=== PATIENT | female | born 1950 | race Caucasian/White ===

== ENCOUNTER 2016-10-27 16:06 | Inpatient (IN) | payer MEDICARE, OTHER ==
[~2016-10-27] VITALS: Ht 149.9 cm; Wt 76.7 kg
[~2016-10-27 16:06] MED LIST: ALBU8.5H6 INH; ASPI81TA9 PO; ATOR20TA58 PO; CARB15DR3 EACHEYE; CARV6.252 PO; CYAN500T17 PO; CYCL10TA2 PO; DOXY100C2 PO; FAMO20TA5 PO; FURO-68 PO; GUAI600T28 PO; HYDR25TA PO; LOSA25TA PO; MULT-18 PO; NITR0.4T6 SL; SIMV40TA3 PO; SPIR25TA PO; SPIR25TA3 PO; TRAM50TA PO; WARF5TAB7 PO
[2016-10-27] MEDS ORDERED: IV NORMAL SALINE 1000ML BAG 1,000 ML IV ONE ×2 (17:00→20:00)
[2016-10-27] MEDS ORDERED: LORAZEPAM 2 MG/ML VIAL IV ONE (17:15)
[2016-10-27] MEDS ORDERED: DIPHENHYDRAMINE 50 MG/ML VIAL IVP ONE (17:15)
[2016-10-27 17:45] LABS: BILIRUBIN,URINE NEGATIVE (NEG); GLUCOSE,URINE NEGATIVE (NEG); NITRITE,URINE NEGATIVE (NEG); PROTEIN,URINE NEGATIVE (NEG-TRACE); UROBILINOGEN,URINE 0.2 mg/dL (0.2 mg/dL)
[2016-10-27 17:45] LABS: BASO # 0.1 x10^3/uL (0.0-0.2); BASO % 1 % (0-3); EOS % 0 % (0-3); HEMOGLOBIN 13.2 g/dL (12.0-15.5); LYMPH # 1.6 x10^3/uL (1.0-4.8); LYMPH % 12 % (24-48); MEAN CORPUSCULAR HEMOGLOBIN 27 pg (25-35); MEAN CORPUSCULAR HGB CONC 33 g/dL (31-37); MEAN CORPUSCULAR VOLUME 83 fL (79-100); MONO % 7 % (0-9); NEUT % 79 % (31-73); PLATELET COUNT 338 x10^3/uL (140-400); RED BLOOD COUNT 4.83 x10^6/uL (3.50-5.40); RED CELL DISTRIBUTION WIDTH 14.1 % (11.5-14.5); WHITE BLOOD COUNT 12.7 x10^3/uL (4.0-11.0)
[2016-10-27 17:55] LABS: BARBITURATES NEG (NEG); BENZODIAZEPINES NEG (NEG); CANNABINOIDS NEG (NEG); COCAINE NEG (NEG); METHADONE NEG (NEG); OPIATES NEG (NEG); PHENCYCLIDINE NEG (NEG); RBC,URINE 0 /HPF (0-2); WBC,URINE OCC /HPF (0-4)
[2016-10-27 17:56] LABS: BACTERIA,URINE 0 /HPF (0-FEW); SQUAMOUS EPITHELIAL CELL,UR MOD /LPF
[2016-10-27 17:57] LABS: ETHANOL, URINE NEG (NEG)
[2016-10-27 17:59] LABS: CALCIUM 9.3 mg/dL (8.5-10.1); CREATININE 2.6 mg/dL (0.6-1.0); GFR 18.5; POTASSIUM 5.1 mmol/L (3.5-5.1)
[2016-10-27 18:11] LABS: ALBUMIN 4.6 g/dL (3.4-5.0); TOTAL BILIRUBIN 0.7 mg/dL (0.2-1.0)
[2016-10-27] MEDS ORDERED: FENTANYL PF 100 MCG/2 ML VIAL. IV PRN (19:30)
[2016-10-27] MEDS ORDERED: IV NORMAL SALINE 1000ML BAG 1,000 ML IV SCH (19:30)
[2016-10-27] MEDS ORDERED: ACETAMINOPHEN 325 MG TABLET. PO PRN (19:30)
[2016-10-27] MEDS ORDERED: ONDANSETRON PF 4 MG/2 ML VIAL. IV PRN ×2 (19:30→20:00)
--- NOTE | 2016-10-27 19:31 | PDOC1 ---
History and Physical Past Medical History Past Medical History PAST MEDICAL HISTORY: 1. Systolic cardiomyopathy. 2. Hypertension. 3. Hyperlipidemia. 4. Valvular insufficiency. 5. Pulmonary embolism. 6. Pneumonia. 7. Anemia. 8. Peripheral neuropathy. 9. Osteoarthritis. 10. Diabetes. PAST SURGICAL HISTORY: 1. Cholecystectomy, placement of a mitral valve ring in 2008. 2. Knee arthroscopy. 3. Left chest AICD placement complicated by staph infection. 4. Possible stent placement of the right subclavian due to venous occlusion. Cardiovascular: CHF, HTN, Hyperlipidemia, Valve insufficiency Pulmonary: Pulmonary embolus, Pneumonia CENTRAL NERVOUS SYSTEM: Periperal neuropathy GI: No pertinent hx Heme/Onc: Anemia NOS, Other Hepatobiliary: No pertinent hx Psych: No pertinent hx Rheumatologic: No pertinent hx Infectious disease: No pertinent hx Renal/: No pertinent hx Endocrine: Diabetes Past Surgical History Past Surgical History: Cholecystectomy, Other Family History Family History: Coronary Artery Disease Social History Smoke: No ALCOHOL: none Drugs: None Current Medications Current Medications Current Medications Medications (Trade) Dose Ordered Sig/[facility] Start Time Stop Time Status Last Admin Dose Admin Acetaminophen (Tylenol) 650 mg PRN Q4HRS PRN 10/27/16 19:30 10/28/16 19:29 Diphenhydramine HCl (Benadryl) 25 mg 1X ONCE 10/27/16 17:15 10/27/16 17:16 DC 10/27/16 17:36 25 MG Fentanyl Citrate 50 mcg 50 mcg PRN Q2HR PRN 10/27/16 19:30 10/28/16 19:29 Lorazepam (Ativan) 2 mg 1X ONCE 10/27/16 17:15 10/27/16 17:16 DC 10/27/16 18:16 1 MG Ondansetron HCl (Zofran) 4 mg PRN Q8HRS PRN 10/27/16 19:30 10/28/16 19:29 Sodium Chloride (Iv Sodium Chloride 0.9% 1000ml Bag) 1,000 ml @ 150 mls/hr Q6H40M 10/27/16 19:30 10/28/16 19:29 Allergies Allergies Allergies Coded Allergies Type Severity Reaction Last Updated Verified NOAH Inhibitors Allergy Intermediate hives 08/18/14 Yes Neuromuscular Blockers, Steroidal Allergy Intermediate rash/swelling 08/18/14 Yes Penicillins Allergy Intermediate hives 08/18/14 Yes ceftriaxone Allergy Intermediate rash 08/18/14 Yes chlorpheniramine Allergy Intermediate rash/blisters 08/18/14 Yes codeine Allergy Intermediate hives,rash,blisters 08/19/14 Yes hydrocodone Allergy Intermediate itching 08/18/14 Yes oxycodone Allergy Intermediate itching 08/18/14 Yes ROS Review of System CONSTITUTIONAL: No fever or chills, twitching all over the body EYES: No recent changes SKIN: No rash or itching CARDIOVASCULAR: No chest pain, syncope, palpitations, or edema RESPIRATORY: No SOB or cough GASTROINTESTINAL: No nausea, vomiting or abdominal pain NEUROLOGICAL: No headaches or weakness ENDOCRINE: No cold or heat intolerance GENITOURINARY: No urgency or frequency of urination MUSCULOSKELETAL: No back pain or joint pain LYMPHATICS: No enlarged lymph nodes PSYCHIATRIC: No anxiety or depression Physical Exam Physical Exam GEN.: No apparent distress. Alert and oriented. HEENT: Head is normocephalic, atraumatic NECK: Supple. no jvd LUNGS: Clear to auscultation. normal airflow HEART: RRR, S1, S2 present. Peripheral pulses intact ABDOMEN: Soft, nontender. Positive bowel sounds. EXTREMITIES: Without any cyanosis. NEUROLOGIC: Normal speech, normal tone PSYCHIATRIC: Normal affect, normal mood. SKIN: No visible skin lesions Vitals Vitals Vital Signs Date Time Temp Pulse Resp B/P Pulse Ox O2 Delivery O2 Flow Rate FiO2 10/27/16 16:09 98.3 105 18 89/59 99 Room Air 98.3 Labs Labs Laboratory Tests Test 10/27/16 17:20 10/27/16 17:30 Urine Collection Type Unknown Urine Color Yellow Urine Clarity Clear Urine pH 6.0 Urine Specific [place] 1.010 Urine Protein Negativemg/dL (NEG-TRACE) Urine Glucose (UA) Negativemg/dL (NEG) Urine Ketones (Stick) Negativemg/dL (NEG) Urine Blood Negative (NEG) Urine Nitrite Negative (NEG) Urine Bilirubin Negative (NEG) Urine Urobilinogen Dipstick 0.2mg/dL (0.2 mg/dL) Urine Leukocyte Esterase Negative (NEG) Urine RBC 0/HPF (0-2) Urine WBC Occ/HPF (0-4) Urine Squamous Epithelial Cells Mod/LPF Urine Amorphous Sediment Present/HPF Urine Bacteria 0/HPF (0-FEW) Urine Hyaline Casts Moderate/HPF Urine Mucus Mod/LPF Urine Opiates Screen Neg (NEG) Urine Methadone Screen Neg (NEG) Urine Barbiturates Neg (NEG) Urine Phencyclidine Screen Neg (NEG) Urine Amphetamine/Methamphetamine Neg (NEG) Urine Benzodiazepines Screen Neg (NEG) Urine Cocaine Screen Neg (NEG) Urine Cannabinoids Screen Neg (NEG) Urine Ethyl Alcohol Neg (NEG) White Blood Count 12.7x10^3/uL (4.0-11.0) Red Blood Count 4.83x10^6/uL (3.50-5.40) Hemoglobin 13.2g/dL (12.0-15.5) Hematocrit 40.0% (36.0-47.0) Mean Corpuscular Volume 83fL (79-100) Mean Corpuscular Hemoglobin 27pg (25-35) Mean Corpuscular Hemoglobin Concent 33g/dL (31-37) Red Cell Distribution Width 14.1% (11.5-14.5) Platelet Count 338x10^3/uL (140-400) Neutrophils (%) (Auto) 79% (31-73) Lymphocytes (%) (Auto) 12% (24-48) Monocytes (%) (Auto) 7% (0-9) Eosinophils (%) (Auto) 0% (0-3) Basophils (%) (Auto) 1% (0-3) Neutrophils # (Auto) 10.1x10^3uL (1.8-7.7) Lymphocytes # (Auto) 1.6x10^3/uL (1.0-4.8) Monocytes # (Auto) 0.9x10^3/uL (0.0-1.1) Eosinophils # (Auto) 0.1x10^3/uL (0.0-0.7) Basophils # (Auto) 0.1x10^3/uL (0.0-0.2) Sodium Level 129mmol/L (136-145) Potassium Level 5.1mmol/L (3.5-5.1) Chloride Level 92mmol/L (98-107) Carbon Dioxide Level 25mmol/L (21-32) Anion Gap 12 (6-14) Blood Urea Nitrogen 74mg/dL (7-20) Creatinine 2.6mg/dL (0.6-1.0) Estimated GFR (Cockcroft-Gault) 18.5 BUN/Creatinine Ratio 28 (6-20) Glucose Level 103mg/dL (70-99) Calcium Level 9.3mg/dL (8.5-10.1) Total Bilirubin 0.7mg/dL (0.2-1.0) Aspartate Amino Transf (AST/SGOT) 16U/L (15-37) Alanine Aminotransferase (ALT/SGPT) 22U/L (14-59) Alkaline Phosphatase 121U/L (46-116) Creatine Kinase 86U/L (26-192) Myoglobin 127ng/mL (9-82) Total Protein 9.0g/dL (6.4-8.2) Albumin 4.6g/dL (3.4-5.0) Albumin/Globulin Ratio 1.0 (1.0-1.7) Laboratory Tests Test 10/27/16 17:20 10/27/16 17:30 Urine Collection Type Unknown Urine Color Yellow Urine Clarity Clear Urine pH 6.0 Urine Specific [place] 1.010 Urine Protein Negativemg/dL (NEG-TRACE) Urine Glucose (UA) Negativemg/dL (NEG) Urine Ketones (Stick) Negativemg/dL (NEG) Urine Blood Negative (NEG) Urine Nitrite Negative (NEG) Urine Bilirubin Negative (NEG) Urine Urobilinogen Dipstick 0.2mg/dL (0.2 mg/dL) Urine Leukocyte Esterase Negative (NEG) Urine RBC 0/HPF (0-2) Urine WBC Occ/HPF (0-4) Urine Squamous Epithelial Cells Mod/LPF Urine Amorphous Sediment Present/HPF Urine Bacteria 0/HPF (0-FEW) Urine Hyaline Casts Moderate/HPF Urine Mucus Mod/LPF Urine Opiates Screen Neg (NEG) Urine Methadone Screen Neg (NEG) Urine Barbiturates Neg (NEG) Urine Phencyclidine Screen Neg (NEG) Urine Amphetamine/Methamphetamine Neg (NEG) Urine Benzodiazepines Screen Neg (NEG) Urine Cocaine Screen Neg (NEG) Urine Cannabinoids Screen Neg (NEG) Urine Ethyl Alcohol Neg (NEG) White Blood Count 12.7x10^3/uL (4.0-11.0) Red Blood Count 4.83x10^6/uL (3.50-5.40) Hemoglobin 13.2g/dL (12.0-15.5) Hematocrit 40.0% (36.0-47.0) Mean Corpuscular Volume 83fL (79-100) Mean Corpuscular Hemoglobin 27pg (25-35) Mean Corpuscular Hemoglobin Concent 33g/dL (31-37) Red Cell Distribution Width 14.1% (11.5-14.5) Platelet Count 338x10^3/uL (140-400) Neutrophils (%) (Auto) 79% (31-73) Lymphocytes (%) (Auto) 12% (24-48) Monocytes (%) (Auto) 7% (0-9) Eosinophils (%) (Auto) 0% (0-3) Basophils (%) (Auto) 1% (0-3) Neutrophils # (Auto) 10.1x10^3uL (1.8-7.7) Lymphocytes # (Auto) 1.6x10^3/uL (1.0-4.8) Monocytes # (Auto) 0.9x10^3/uL (0.0-1.1) Eosinophils # (Auto) 0.1x10^3/uL (0.0-0.7) Basophils # (Auto) 0.1x10^3/uL (0.0-0.2) Sodium Level 129mmol/L (136-145) Potassium Level 5.1mmol/L (3.5-5.1) Chloride Level 92mmol/L (98-107) Carbon Dioxide Level 25mmol/L (21-32) Anion Gap 12 (6-14) Blood Urea Nitrogen 74mg/dL (7-20) Creatinine 2.6mg/dL (0.6-1.0) Estimated GFR (Cockcroft-Gault) 18.5 BUN/Creatinine Ratio 28 (6-20) Glucose Level 103mg/dL (70-99) Calcium Level 9.3mg/dL (8.5-10.1) Total Bilirubin 0.7mg/dL (0.2-1.0) Aspartate Amino Transf (AST/SGOT) 16U/L (15-37) Alanine Aminotransferase (ALT/SGPT) 22U/L (14-59) Alkaline Phosphatase 121U/L (46-116) Creatine Kinase 86U/L (26-192) Myoglobin 127ng/mL (9-82) Total Protein 9.0g/dL (6.4-8.2) Albumin 4.6g/dL (3.4-5.0) Albumin/Globulin Ratio 1.0 (1.0-1.7) VTE Prophylaxis Ordered VTE Prophylaxis Devices: No VTE Pharmacological Prophylaxi: No CARLOS BOOKER MD Oct 27, 2016 19:31
[2016-10-27] MEDS ORDERED: ALBUTEROL SULFATE 2.5 MG/3 ML NEBU. NEB PRN (20:00)
[2016-10-27] MEDS ORDERED: hydrALAZINE 20 MG/ML VIAL. IVP PRN (20:00)
[2016-10-27] MEDS ORDERED: LORAZEPAM 1 MG TABLET. PO PRN (21:00)
--- NOTE | 2016-10-27 22:28 | PHYS DOC ---
Past Medical History Past Medical History: DVT, High Cholesterol, Hypertension, Pneumonia, Other Additional Past Medical Histor: Tricuspid regurgitation, Mitral regurg, Implanted pace/defib, cardiomyopath Past Surgical History: Pacemaker, Other Additional Past Surgical Histo: pacemaker/defib(x3), right shoulder Alcohol Use: None Drug Use: None Adult General Chief Complaint Chief Complaint: MUSCLE SPASM/CRAMP HPI HPI 66-year-old female presents from an urgent care clinic secondary to muscle spasms muscle twitching diffuse aches and pains. Patient states she has not felt well for several days. Patient states she has recently been aggressively treated with diuretics. She states she's been taking 100 mg of spironolactone as well as other diuretic medication. She states since that time she has felt poorly and correlating to this is when she started having a lot of muscle pain and twitching. She states she is having quite a bit of urine output. She denies any fever chills or sweats. She denies any bleeding. [] Review of Systems Review of Systems Constitutional: Denies fever or chills [] Eyes: Denies change in visual acuity, redness, or eye pain [] HENT: Denies nasal congestion or sore throat [] Respiratory: Denies cough or shortness of breath [] Cardiovascular: No additional information not addressed in HPI [] GI: Denies abdominal pain, nausea, vomiting, bloody stools or diarrhea [] : Denies dysuria or hematuria [] Musculoskeletal: Denies back pain or joint pain [] Integument: Denies rash or skin lesions [] Neurologic: Denies headache, focal weakness or sensory changes [] Endocrine: Denies polyuria or polydipsia [] Current Medications Current Medications Current Medications Medications (Trade) Dose Ordered Sig/[facility] Start Time Stop Time Status Last Admin Dose Admin Acetaminophen (Tylenol) 325 mg PRN Q6HRS PRN 10/27/16 20:00 Albuterol Sulfate 2.5 mg 2.5 mg PRN Q4HRS PRN 10/27/16 20:00 Diphenhydramine HCl (Benadryl) 25 mg 1X ONCE 10/27/16 17:15 10/27/16 17:16 DC 10/27/16 17:36 25 MG Fentanyl Citrate (Fentanyl 2ml Vial) 50 mcg PRN Q2HR PRN 10/27/16 19:30 10/28/16 19:29 Hydralazine HCl (Apresoline) 10 mg PRN Q4HRS PRN 10/27/16 20:00 Lorazepam (Ativan) 2 mg 1X ONCE 10/27/16 17:15 10/27/16 17:16 DC 10/27/16 18:16 1 MG Ondansetron HCl (Zofran) 4 mg PRN Q8HRS PRN 10/27/16 20:00 Sodium Chloride (Iv Sodium Chloride 0.9% 1000ml Bag) 1,000 ml @ 50 mls/hr 1X ONCE 10/27/16 20:00 10/28/16 15:59 10/27/16 20:14 50 MLS/HR Allergies Allergies Allergies Coded Allergies Type Severity Reaction Last Updated Verified NOAH Inhibitors Allergy Intermediate hives 08/18/14 Yes Neuromuscular Blockers, Steroidal Allergy Intermediate rash/swelling 08/18/14 Yes Penicillins Allergy Intermediate hives 08/18/14 Yes ceftriaxone Allergy Intermediate rash 08/18/14 Yes chlorpheniramine Allergy Intermediate rash/blisters 08/18/14 Yes codeine Allergy Intermediate hives,rash,blisters 08/19/14 Yes hydrocodone Allergy Intermediate itching 08/18/14 Yes oxycodone Allergy Intermediate itching 08/18/14 Yes Physical Exam Physical Exam Constitutional: Well developed, well nourished, no acute distress, non-toxic appearance. [] HENT: Normocephalic, atraumatic, bilateral external ears normal, oropharynx moist, no oral exudates, nose normal. [] Eyes: PERRLA, EOMI, conjunctiva normal, no discharge. [] Neck: Normal range of motion, no tenderness, supple, no stridor. [] Cardiovascular:Heart rate regular rhythm, no murmur [] Lungs & Thorax: Bilateral breath sounds clear to auscultation [] Abdomen: Bowel sounds normal, soft, no tenderness, no masses, no pulsatile masses. [] Skin: Warm, dry, no erythema, no rash. [] Back: No tenderness, no CVA tenderness. [] Extremities: No tenderness, no cyanosis, no clubbing, ROM intact, no edema. [] Neurologic: Alert and oriented X 3, normal motor function, normal sensory function, no focal deficits noted. [] Psychologic: Affect normal, judgement normal, mood normal. [] Current Patient Data Vital Signs Vital Signs Date Time Temp Pulse Resp B/P Pulse Ox O2 Delivery O2 Flow Rate FiO2 10/27/16 20:15 93 14 85/52 100 Room Air 10/27/16 16:09 98.3 98.3 Lab Values Laboratory Tests Test 10/27/16 17:20 10/27/16 17:30 Urine Collection Type Unknown Urine Color Yellow Urine Clarity Clear Urine pH 6.0 Urine Specific [place] 1.010 Urine Protein Negativemg/dL (NEG-TRACE) Urine Glucose (UA) Negativemg/dL (NEG) Urine Ketones (Stick) Negativemg/dL (NEG) Urine Blood Negative (NEG) Urine Nitrite Negative (NEG) Urine Bilirubin Negative (NEG) Urine Urobilinogen Dipstick 0.2mg/dL (0.2 mg/dL) Urine Leukocyte Esterase Negative (NEG) Urine RBC 0/HPF (0-2) Urine WBC Occ/HPF (0-4) Urine Squamous Epithelial Cells Mod/LPF Urine Amorphous Sediment Present/HPF Urine Bacteria 0/HPF (0-FEW) Urine Hyaline Casts Moderate/HPF Urine Mucus Mod/LPF Urine Opiates Screen Neg (NEG) Urine Methadone Screen Neg (NEG) Urine Barbiturates Neg (NEG) Urine Phencyclidine Screen Neg (NEG) Urine Amphetamine/Methamphetamine Neg (NEG) Urine Benzodiazepines Screen Neg (NEG) Urine Cocaine Screen Neg (NEG) Urine Cannabinoids Screen Neg (NEG) Urine Ethyl Alcohol Neg (NEG) White Blood Count 12.7x10^3/uL (4.0-11.0) H Red Blood Count 4.83x10^6/uL (3.50-5.40) Hemoglobin 13.2g/dL (12.0-15.5) Hematocrit 40.0% (36.0-47.0) Mean Corpuscular Volume 83fL (79-100) Mean Corpuscular Hemoglobin 27pg (25-35) Mean Corpuscular Hemoglobin Concent 33g/dL (31-37) Red Cell Distribution Width 14.1% (11.5-14.5) Platelet Count 338x10^3/uL (140-400) Neutrophils (%) (Auto) 79% (31-73) H Lymphocytes (%) (Auto) 12% (24-48) L Monocytes (%) (Auto) 7% (0-9) Eosinophils (%) (Auto) 0% (0-3) Basophils (%) (Auto) 1% (0-3) Neutrophils # (Auto) 10.1x10^3uL (1.8-7.7) H Lymphocytes # (Auto) 1.6x10^3/uL (1.0-4.8) Monocytes # (Auto) 0.9x10^3/uL (0.0-1.1) Eosinophils # (Auto) 0.1x10^3/uL (0.0-0.7) Basophils # (Auto) 0.1x10^3/uL (0.0-0.2) Sodium Level 129mmol/L (136-145) L Potassium Level 5.1mmol/L (3.5-5.1) Chloride Level 92mmol/L (98-107) L Carbon Dioxide Level 25mmol/L (21-32) Anion Gap 12 (6-14) Blood Urea Nitrogen 74mg/dL (7-20) H Creatinine 2.6mg/dL (0.6-1.0) H Estimated GFR (Cockcroft-Gault) 18.5 BUN/Creatinine Ratio 28 (6-20) H Glucose Level 103mg/dL (70-99) H Calcium Level 9.3mg/dL (8.5-10.1) Magnesium Level 2.2mg/dL (1.8-2.4) Total Bilirubin 0.7mg/dL (0.2-1.0) Aspartate Amino Transferase (AST) 16U/L (15-37) Alanine Aminotransferase (ALT) 22U/L (14-59) Alkaline Phosphatase 121U/L (46-116) H Creatine Kinase 86U/L (26-192) Myoglobin 127ng/mL (9-82) H Total Protein 9.0g/dL (6.4-8.2) H Albumin 4.6g/dL (3.4-5.0) Albumin/Globulin Ratio 1.0 (1.0-1.7) Laboratory Tests 10/27/16 17:30 Laboratory Tests 10/27/16 17:30 EKG EKG EKG: Sinus tachycardia rate of [address]-T changes [] Radiology/Procedures Radiology/Procedures [] Course & Med Decision Making Course & Med Decision Making Pertinent Labs and Imaging studies reviewed. (See chart for details) [ED course: Evaluation reveals a 66-year-old female with progressive renal failure. Her BUNs 74 creatinine greater than 2. Patient was given IV fluids pain medication and Ativan during her stay in the department. Initially her blood pressure was low in the high 80s systolic but after a liter of normal saline her blood pressure normalized to greater than 100 systolic. I spoke with Dr. Emily Sofia who agreed to accept the patient for admission. We will also consult nephrology to assist in management.] Dragon Disclaimer Dragon Disclaimer This electronic medical record was generated, in whole or in part, using a voice recognition dictation system. Departure Departure Impression: Primary Impression: Renal failure Disposition: ADMITTED INPATIENT Admitting Physician: Ousmane Suarez Condition: GUARDED Referrals: NO PCP (PCP) MILTON HERRING DO Oct 27, 2016 22:28
[2016-10-27 22:38] VITALS: BP 73/54
--- NOTE | 2016-10-27 22:38 | ACF ---
Admission Forms Criteria TELEMETRY CARE Telemetry Admission Guidelines (Place 'X' for any and all applicable criteria): Admission to telemetry [A] may be indicated for ANY ONE of the following(1)(2)(3 )(4)(5): [X]I. Cardiac disease, including ANY ONE of the following (9)(10)(11)(12)(13 ): [ ]a) Postacute MO [ ]b) Low-risk patients with ST-segment elevation MO who have undergone successful percutaneous coronary intervention [ ]c) Unstable angina [ ]d) Suspected MO (until it is ruled out) [ ]e) Post cardiac surgery (first 48 to 72 hours unless complications occur) [X]f) Acute arrhythmias (including significant tachycardia or bradycardia) [B] [ ]g) Firing of an implantable cardioverter defibrillator [C] [ ]h) Suspected pacemaker or implantable cardioverter defibrillator malfunction (10) [ ]i) New administration or adjustment of an antiarrhythmic drug [D ] [ ]j) Child admitted for acute congestive heart failure [ ]j) Long QT syndrome [ ]k) Advanced heart block (eg, second-degree Mobitz type II, third- degree heart block) [ ]l) Acute myocarditis or pericarditis [ ]m) Short-term (ambulatory or inpatient) monitoring after a cardiac procedure as indicated by ANY ONE of the following [E]: [ ]i) Electrophysiologic studies [ ]ii) Percutaneous coronary intervention with stent placement [ ]iii) Pacemaker placement with cardiac conduction defect [ ]iv) Implantable cardiac defibrillator placement [ ]II. Drug overdose or poisoning with substance that causes arrhythmias or QT prolongation (eg, phenothiazines, sympathomimetic agents, cyclic antidepressants, digitalis, antiarrhythmic drugs)(15) [ ]III. Short-term (ambulatory or inpatient) monitoring after therapeutic or diagnostic procedure requiring conscious sedation or anesthesia (eg, endoscopy, elective cardioversion) [ ]IV. Acute cerebrovascular even[F](18) [ ]V. Massive blood transfusion (eg, at least 10 units of packed red blood cells in 24 hours) [ ]. Variceal bleeding after endoscopy, sclerotherapy, or IV vasopressin [ ]VII. Uncorrected electrolyte abnormalities associated with an increased risk of dangerous arrhythmia [G]; examples include [ ]a) Hyperkalemia with attributable ECG changes [ ]b) Potassium greater than 6.5 mmol/L (mEq/L) in a patient without history of chronic renal disease [ ]c) Prolonged QT attributed to hypokalemia, hypomagnesemia, or hypocalcemia [ ]VIII.Unexplained syncope or other neurologic event suspected of being due to arrhythmia due to a finding that increases risk; examples include(19)(20)(21): [ ]a) High-risk ECG findings (eg, bifascicular block, bradycardia, abnormal QT interval, ventricular pre- excitation) [ ]b) History of previous syncope due to arrhythmia [ ]c) Abnormal ventricular function (eg, reduced ejection fraction ) [ ]d) Exertional or supine syncope [ ]e) Concerning syncope characteristics (eg, sudden loss of consciousness without prodrome) [ ]f) Family history of sudden [ ]g) Use of arrhythmogenic medication [ ]h) Suspected cardiac ischemia [ ]i) Known channelopathy (eg, long QT syndrome, Brugada syndrome, or catecholaminergic paroxysmal ventricular tachycardia) [ ]j) Known structural heart disease (eg, hypertrophic cardiomyopathy , severe valvular disease) [ ]k) Palpitations preceding syncope The original [employer] content created by [employer] has been revised. The portions of the content which have been revised are identified through the use of italic text or in bold, and [employer] has neither reviewed nor approved the modified material. All other unmodified content is copyright [employer]. Please see references footnoted in the original [employer] edition 2016 TAMY SOLITARIO Oct 27, 2016 22:38
[2016-10-27] MEDS ORDERED: SPIR50TA2 PO (23:45)
--- NOTE | 2016-10-28 01:00 | ACF ---
Admission Forms Criteria RENAL FAILURE, ACUTE Clinical Indications for Admission to Inpatient Care ( Place 'X' for any and all applicable criteria): Admission is indicated for ALL (if I & II) or III of the following [A](2)(3)(4)( 5)(6)(7): [ ]I. Acute renal failure as indicated by ANY ONE of the following: [ ]a) A 3-fold rise in serum creatinine from baseline [ ]b) Serum creatinine greater than 4 mg/dL (354 micromoles/L) with an acute rise greater than 0.5 mg/dL (44.2 micromoles/L) [ ]c) Reduction of more than 75% in estimated glomerular filtration rate from baseline [ ]d) Estimated glomerular filtration rate less than 35 mL/min/1.73m2 (0.59mL/sec/1.73m2)in a child up to 18 years of age [ ]e) Anuria indicated by ALL of the following: [ ]i) Adequate volume status [ ]ii) Cessation of urine output indicated by ANY ONE of the following: [ ]1) Urine output less than 0.3 mL/kg/hr for 24 hours [ ]2) Anuria (urine output less than 0.1 mL/kg/ hr) for 12 hours [ ] II. Renal failure cannot be managed in an outpatient setting or observational care setting as indicating by ANY ONE of the following: [ ]a) Altered mental status that is severe or persistent [ ]b) Volume overload or Respiratory distress (eg, clinically significant pulmonary edema) that is severe or persistent [ ]c) Cardiac arrhythmias of immediate concern [ ]d) Hemodynamic instability [ ]e) Clinically significant electrolyte abnormality that requires inpatient care (eg, hyperkalemia with severe ECG findings)[B] [ ]f) Clinically significant metabolic abnormality (eg, acidosis) that is severe or persistent [ ]g) Acute treatment of renal failure (eg, renal replacement therapy) not feasible or appropriate in observational care setting [ ]h) Clinical situation too unstable or uncertain (eg, inadequate urine output, ongoing decline in renal function, etiology unclear) [ ]i) Necessary support and caregiver ability to comply with outpatient treatment cannot be arranged in observation care timeframe (eg, within 24 hours) [ ]j) Other significant finding or clinical condition judged not to be within scope of observation care [X]III.General contraindications and/or Inappropriate clinical situations for Observational Care in patients with Acute Renal Failure, when ANY ONE of the following is required: [X]a) Prediction of prolongation of LOS based on ANY ONE of the following may be considered as a contraindication for observational care 2, 3, 4, 5, 6, 7, 8 , 9, 10, 11 [ ]i) Age > 65 yrs. [ ]ii) Patient arriving by ambulance [ ]iii) Patient with high acuity [X]iv) Patient requiring vital sign monitoring [ ]v) Patient on IV medication [ ]b) Systolic blood pressures 180mmHg 3,12 [ ]c) Patient with altered mental status including delirium and other alteration of consciousness, (3) [ ]d) Patient whose discharge disposition will be to a assisted home or rehabilitation home should not be managed in Emergency Department Observation Unit. CMS rule requires 3 days hospital stay before such placement.3,13 [ ]e) Patient with failure to thrive due to broad array of etiologies 3, 16,17 [ ]f) Inability to ambulate 3,14 Extended stay beyond goal length of stay may be needed for(13) [ ]a) Continuing uremic complications [ ]b) Care for comorbidities [ ]c) acute renal failure [ ]d) Need for dialysis The original [employer] content created by [employer] has been revised. The portions of the content which have been revised are identified through the use of italic text or in bold, and [facility] has neither reviewed nor approved the modified material. All other unmodified content is copyright [employer]. Please see references footnoted in the original [facility] [facility] edition 2015 Admission Criteria Met?: Yes TAMY SOLITARIO Oct 28, 2016 01:00
[2016-10-28 02:34] VITALS: BP 75/43
[2016-10-28 04:33] LABS: BASO # 0.1 x10^3/uL (0.0-0.2); BASO % 1 % (0-3); EOS % 3 % (0-3); HEMATOCRIT 37.2 % (36.0-47.0); HEMOGLOBIN 11.9 g/dL (12.0-15.5); LYMPH # 2.6 x10^3/uL (1.0-4.8); LYMPH % 24 % (24-48); MEAN CORPUSCULAR HEMOGLOBIN 27 pg (25-35); MEAN CORPUSCULAR HGB CONC 32 g/dL (31-37); MEAN CORPUSCULAR VOLUME 85 fL (79-100); MONO % 11 % (0-9); NEUT % 62 % (31-73); PLATELET COUNT 290 x10^3/uL (140-400); WHITE BLOOD COUNT 10.6 x10^3/uL (4.0-11.0)
[2016-10-28 04:49] LABS: ALBUMIN 3.9 g/dL (3.4-5.0); CREATININE 1.4 mg/dL (0.6-1.0); GFR 37.9; POTASSIUM 4.7 mmol/L (3.5-5.1); TOTAL BILIRUBIN 0.8 mg/dL (0.2-1.0); TOTAL PROTEIN 7.8 g/dL (6.4-8.2)
[2016-10-28 07:00] VITALS: BP 97/62
[2016-10-28 10:52] VITALS: BP 91/58
--- NOTE | 2016-10-28 12:04 | PDOC2 ---
CONSULT Date of Consult Date of Consult DATE: 10/28/16 TIME: 11:59 Reason for Consult Reason for Consult: SHERRELL Referring Physician Referring Physician: ADE Identification/Chief Complaint Chief Complaint MUSCLE WEAKNESS AND CRAMPS Source Source: Chart review, Patient History of Present Illness Reason for Visit: THIS IS A 66 YR OLD ADMITTED WITH MUSCLE WEAKNESS AND CRAMPS. SHE WAS NOTED TO HAVE A CR OF 2.6. NO CKD IS NOTED. SHE HAS HAD SOME SOB RECENTLY AND HER PHYSICIAN INCREASE HER DIURETICS ON AN OP BASIS. 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 SHE HAS BEEN ON LASIX AND ALDACTONE Past Medical History Cardiovascular: CHF, HTN, Hyperlipidemia, Valve insufficiency Pulmonary: Pulmonary embolus, Pneumonia CENTRAL NERVOUS SYSTEM: Periperal neuropathy GI: No pertinent hx Heme/Onc: Anemia NOS, Other Hepatobiliary: No pertinent hx Psych: No pertinent hx Musculoskeletal: Osteoarthritis Rheumatologic: No pertinent hx Infectious disease: No pertinent hx Renal/: No pertinent hx Endocrine: Diabetes Past Surgical History Past Surgical History: Cholecystectomy, Other Family History Family History: Coronary Artery Disease Social History No ALCOHOL: none Drugs: None Current Problem List Problem List Problems Medical Problems: (1) Renal failure Status: Acute Current Medications Current Medications Current Medications Lorazepam (Ativan) 2 mg 1X ONCE IV Last administered on 10/27/16 18:16; Start 10/27/16 at 17:15; Stop 10/27/16 at 17:16; Status DC Diphenhydramine HCl 25 mg 25 mg 1X ONCE IVP Last administered on 10/27/16 17: 36; Start 10/27/16 at 17:15; Stop 10/27/16 at 17:16; Status DC Sodium Chloride (Iv Sodium Chloride 0.9% 1000ml Bag) 1,000 ml @ 1,000 mls/hr 1X ONCE IV Last administered on 10/27/16 17:36; Start 10/27/16 at 17:00; Stop 10/27/16 at 17:59; Status DC Ondansetron HCl (Zofran) 4 mg PRN Q8HRS PRN IV NAUSEA/VOMITING; Start 10/27/16 at 19:30; Stop 10/28/16 at 19:29 Fentanyl Citrate 50 mcg 50 mcg PRN Q2HR PRN IV PAIN; Start 10/27/16 at 19:30; Stop 10/28/16 at 19:29 Sodium Chloride (Iv Sodium Chloride 0.9% 1000ml Bag) 1,000 ml @ 150 mls/hr Q6H40M IV ; Start 10/27/16 at 19:30; Stop 10/27/16 at 19:49; Status DC Acetaminophen (Tylenol) 650 mg PRN Q4HRS PRN PO FEVER; Start 10/27/16 at 19:30 ; Stop 10/28/16 at 19:29 Acetaminophen (Tylenol) 325 mg PRN Q6HRS PRN PO MILD PAIN / TEMP; Start at 20:00 Hydralazine HCl (Apresoline) 10 mg PRN Q4HRS PRN IVP ELEVATED BP, SEE COMMENTS ; Start 10/27/16 at 20:00 Ondansetron HCl (Zofran) 4 mg PRN Q8HRS PRN IV NAUSEA/VOMITING; Start 10/27/16 at 20:00 Albuterol Sulfate 2.5 mg 2.5 mg PRN Q4HRS PRN NEB SHORTNESS OF BREATH; Start at 20:00 Sodium Chloride (Iv Sodium Chloride 0.9% 1000ml Bag) 1,000 ml @ 50 mls/hr 1X ONCE IV Last administered on 10/27/16t 20:14; Start 10/27/16 at 20:00; Stop at 15:59 Lorazepam (Ativan) 1 mg PRN QHS PRN PO ANXIETY / AGITATION; Start 10/27/16 at 21:00 Active Scripts Active Aldactone (Spironolactone) 25 Mg Tablet 25 Mg PO DAILY Lasix (Furosemide) 40 Mg Tablet 40 Mg PO DAILY Reported Spironolactone 50 Mg Tablet 50 Mg PO DAILY Cyclobenzaprine Hcl 10 Mg Tablet 10 Mg PO TID PRN Atorvastatin Calcium 20 Mg Tablet 20 Mg PO DAILY Refresh Optive Eye Drops (Carboxymethylcellulos/Glycerin) 15 Ml Drops 1 Drop EACHEYE QID PRN Tramadol Hcl 50 Mg Tablet 50 Mg PO Q8HRS PRN NITROGLYCERIN SubLingual (Nitroglycerin) 0.4 Mg Tab.subl 0.4 Mg SL PRN Q5MIN PRN Daily Vitamin (Multivitamin) 1 Each Tablet 1 Each PO DAILY B-12 (Cyanocobalamin (Vitamin B-12)) 500 Mcg Tablet 500 Mcg PO DAILY Albuterol Sulfate Hfa Inhaler (Albuterol Sulfate) 8.5 Gm Hfa.aer.ad 2 Puff INH Q4HRS PRN Aspirin Ec (Aspirin) 81 Mg Tablet.dr 81 Mg PO DAILY Allergies Allergies: Coded Allergies: NOAH Inhibitors (Verified Allergy, Intermediate, hives, 08/18/14) Neuromuscular Blockers, Steroidal (Verified Allergy, Intermediate, rash/ swelling, 08/18/14) Penicillins (Verified Allergy, Intermediate, hives, 08/18/14) ceftriaxone (Verified Allergy, Intermediate, rash, 08/18/14) chlorpheniramine (Verified Allergy, Intermediate, rash/blisters, 08/18/14) codeine (Verified Allergy, Intermediate, hives,rash,blisters, 08/19/14) hydrocodone (Verified Allergy, Intermediate, itching, 08/18/14) Pt tolerates Tramadol oxycodone (Verified Allergy, Intermediate, itching, 08/18/14) pt tolerates tramadol ROS General: YES: Appetite, Fatigue, Malaise PSYCHOLOGICAL ROS: YES: Anxiety Eyes: Yes Decreased vision HEENT: YES: Heacaches Respiratory: YES: Cough Gastrointestinal: Yes Constipation Musculoskeletal: Yes Muscular Weakness, Yes Other (MUSCLE CRAMPS) Neurological: Yes Weakness Physical Exam General: Alert, Oriented X3, Cooperative, No acute distress HEENT: Atraumatic, PERRLA Lungs: Clear to auscultation, Normal air movement Heart: Regular rate Abdomen: Normal bowel sounds, Soft Neuro: Normal speech Psych/Mental Status: Mental status NL, Mood NL MUSCULOSKELETAL: No deformity Vitals VITALS Vital Signs Date Time Temp Pulse Resp B/P Pulse Ox O2 Delivery O2 Flow Rate FiO2 10/28/16 10:52 98.1 99 20 91/58 98 Room Air 98.1 Labs Labs Laboratory Tests Test 10/27/16 17:20 10/27/16 17:30 10/28/16 03:55 Urine Collection Type Unknown Urine Color Yellow Urine Clarity Clear Urine pH 6.0 Urine Specific [place] 1.010 Urine Protein Negativemg/dL (NEG-TRACE) Urine Glucose (UA) Negativemg/dL (NEG) Urine Ketones (Stick) Negativemg/dL (NEG) Urine Blood Negative (NEG) Urine Nitrite Negative (NEG) Urine Bilirubin Negative (NEG) Urine Urobilinogen Dipstick 0.2mg/dL (0.2 mg/dL) Urine Leukocyte Esterase Negative (NEG) Urine RBC 0/HPF (0-2) Urine WBC Occ/HPF (0-4) Urine Squamous Epithelial Cells Mod/LPF Urine Amorphous Sediment Present/HPF Urine Bacteria 0/HPF (0-FEW) Urine Hyaline Casts Moderate/HPF Urine Mucus Mod/LPF Urine Opiates Screen Neg (NEG) Urine Methadone Screen Neg (NEG) Urine Barbiturates Neg (NEG) Urine Phencyclidine Screen Neg (NEG) Urine Amphetamine/Methamphetamine Neg (NEG) Urine Benzodiazepines Screen Neg (NEG) Urine Cocaine Screen Neg (NEG) Urine Cannabinoids Screen Neg (NEG) Urine Ethyl Alcohol Neg (NEG) White Blood Count 12.7x10^3/uL (4.0-11.0) 10.6x10^3/uL (4.0-11.0) Red Blood Count 4.83x10^6/uL (3.50-5.40) 4.40x10^6/uL (3.50-5.40) Hemoglobin 13.2g/dL (12.0-15.5) 11.9g/dL (12.0-15.5) Hematocrit 40.0% (36.0-47.0) 37.2% (36.0-47.0) Mean Corpuscular Volume 83fL (79-100) 85fL (79-100) Mean Corpuscular Hemoglobin 27pg (25-35) 27pg (25-35) Mean Corpuscular Hemoglobin Concent 33g/dL (31-37) 32g/dL (31-37) Red Cell Distribution Width 14.1% (11.5-14.5) 14.0% (11.5-14.5) Platelet Count 338x10^3/uL (140-400) 290x10^3/uL (140-400) Neutrophils (%) (Auto) 79% (31-73) 62% (31-73) Lymphocytes (%) (Auto) 12% (24-48) 24% (24-48) Monocytes (%) (Auto) 7% (0-9) 11% (0-9) Eosinophils (%) (Auto) 0% (0-3) 3% (0-3) Basophils (%) (Auto) 1% (0-3) 1% (0-3) Neutrophils # (Auto) 10.1x10^3uL (1.8-7.7) 6.5x10^3uL (1.8-7.7) Lymphocytes # (Auto) 1.6x10^3/uL (1.0-4.8) 2.6x10^3/uL (1.0-4.8) Monocytes # (Auto) 0.9x10^3/uL (0.0-1.1) 1.1x10^3/uL (0.0-1.1) Eosinophils # (Auto) 0.1x10^3/uL (0.0-0.7) 0.3x10^3/uL (0.0-0.7) Basophils # (Auto) 0.1x10^3/uL (0.0-0.2) 0.1x10^3/uL (0.0-0.2) Sodium Level 129mmol/L (136-145) 131mmol/L (136-145) Potassium Level 5.1mmol/L (3.5-5.1) 4.7mmol/L (3.5-5.1) Chloride Level 92mmol/L (98-107) 96mmol/L (98-107) Carbon Dioxide Level 25mmol/L (21-32) 24mmol/L (21-32) Anion Gap 12 (6-14) 11 (6-14) Blood Urea Nitrogen 74mg/dL (7-20) 64mg/dL (7-20) Creatinine 2.6mg/dL (0.6-1.0) 1.4mg/dL (0.6-1.0) Estimated GFR (Cockcroft-Gault) 18.5 37.9 BUN/Creatinine Ratio 28 (6-20) 46 (6-20) Glucose Level 103mg/dL (70-99) 90mg/dL (70-99) Calcium Level 9.3mg/dL (8.5-10.1) 9.0mg/dL (8.5-10.1) Magnesium Level 2.2mg/dL (1.8-2.4) Total Bilirubin 0.7mg/dL (0.2-1.0) 0.8mg/dL (0.2-1.0) Aspartate Amino Transf (AST/SGOT) 16U/L (15-37) 18U/L (15-37) Alanine Aminotransferase (ALT/SGPT) 22U/L (14-59) 17U/L (14-59) Alkaline Phosphatase 121U/L (46-116) 96U/L (46-116) Creatine Kinase 86U/L (26-192) Myoglobin 127ng/mL (9-82) Total Protein 9.0g/dL (6.4-8.2) 7.8g/dL (6.4-8.2) Albumin 4.6g/dL (3.4-5.0) 3.9g/dL (3.4-5.0) Albumin/Globulin Ratio 1.0 (1.0-1.7) 1.0 (1.0-1.7) Laboratory Tests Test 10/27/16 17:20 10/27/16 17:30 10/28/16 03:55 Urine Collection Type Unknown Urine Color Yellow Urine Clarity Clear Urine pH 6.0 Urine Specific [place] 1.010 Urine Protein Negativemg/dL (NEG-TRACE) Urine Glucose (UA) Negativemg/dL (NEG) Urine Ketones (Stick) Negativemg/dL (NEG) Urine Blood Negative (NEG) Urine Nitrite Negative (NEG) Urine Bilirubin Negative (NEG) Urine Urobilinogen Dipstick 0.2mg/dL (0.2 mg/dL) Urine Leukocyte Esterase Negative (NEG) Urine RBC 0/HPF (0-2) Urine WBC Occ/HPF (0-4) Urine Squamous Epithelial Cells Mod/LPF Urine Amorphous Sediment Present/HPF Urine Bacteria 0/HPF (0-FEW) Urine Hyaline Casts Moderate/HPF Urine Mucus Mod/LPF Urine Opiates Screen Neg (NEG) Urine Methadone Screen Neg (NEG) Urine Barbiturates Neg (NEG) Urine Phencyclidine Screen Neg (NEG) Urine Amphetamine/Methamphetamine Neg (NEG) Urine Benzodiazepines Screen Neg (NEG) Urine Cocaine Screen Neg (NEG) Urine Cannabinoids Screen Neg (NEG) Urine Ethyl Alcohol Neg (NEG) White Blood Count 12.7x10^3/uL (4.0-11.0) 10.6x10^3/uL (4.0-11.0) Red Blood Count 4.83x10^6/uL (3.50-5.40) 4.40x10^6/uL (3.50-5.40) Hemoglobin 13.2g/dL (12.0-15.5) 11.9g/dL (12.0-15.5) Hematocrit 40.0% (36.0-47.0) 37.2% (36.0-47.0) Mean Corpuscular Volume 83fL (79-100) 85fL (79-100) Mean Corpuscular Hemoglobin 27pg (25-35) 27pg (25-35) Mean Corpuscular Hemoglobin Concent 33g/dL (31-37) 32g/dL (31-37) Red Cell Distribution Width 14.1% (11.5-14.5) 14.0% (11.5-14.5) Platelet Count 338x10^3/uL (140-400) 290x10^3/uL (140-400) Neutrophils (%) (Auto) 79% (31-73) 62% (31-73) Lymphocytes (%) (Auto) 12% (24-48) 24% (24-48) Monocytes (%) (Auto) 7% (0-9) 11% (0-9) Eosinophils (%) (Auto) 0% (0-3) 3% (0-3) Basophils (%) (Auto) 1% (0-3) 1% (0-3) Neutrophils # (Auto) 10.1x10^3uL (1.8-7.7) 6.5x10^3uL (1.8-7.7) Lymphocytes # (Auto) 1.6x10^3/uL (1.0-4.8) 2.6x10^3/uL (1.0-4.8) Monocytes # (Auto) 0.9x10^3/uL (0.0-1.1) 1.1x10^3/uL (0.0-1.1) Eosinophils # (Auto) 0.1x10^3/uL (0.0-0.7) 0.3x10^3/uL (0.0-0.7) Basophils # (Auto) 0.1x10^3/uL (0.0-0.2) 0.1x10^3/uL (0.0-0.2) Sodium Level 129mmol/L (136-145) 131mmol/L (136-145) Potassium Level 5.1mmol/L (3.5-5.1) 4.7mmol/L (3.5-5.1) Chloride Level 92mmol/L (98-107) 96mmol/L (98-107) Carbon Dioxide Level 25mmol/L (21-32) 24mmol/L (21-32) Anion Gap 12 (6-14) 11 (6-14) Blood Urea Nitrogen 74mg/dL (7-20) 64mg/dL (7-20) Creatinine 2.6mg/dL (0.6-1.0) 1.4mg/dL (0.6-1.0) Estimated GFR (Cockcroft-Gault) 18.5 37.9 BUN/Creatinine Ratio 28 (6-20) 46 (6-20) Glucose Level 103mg/dL (70-99) 90mg/dL (70-99) Calcium Level 9.3mg/dL (8.5-10.1) 9.0mg/dL (8.5-10.1) Magnesium Level 2.2mg/dL (1.8-2.4) Total Bilirubin 0.7mg/dL (0.2-1.0) 0.8mg/dL (0.2-1.0) Aspartate Amino Transf (AST/SGOT) 16U/L (15-37) 18U/L (15-37) Alanine Aminotransferase (ALT/SGPT) 22U/L (14-59) 17U/L (14-59) Alkaline Phosphatase 121U/L (46-116) 96U/L (46-116) Creatine Kinase 86U/L (26-192) Myoglobin 127ng/mL (9-82) Total Protein 9.0g/dL (6.4-8.2) 7.8g/dL (6.4-8.2) Albumin 4.6g/dL (3.4-5.0) 3.9g/dL (3.4-5.0) Albumin/Globulin Ratio 1.0 (1.0-1.7) 1.0 (1.0-1.7) Assessment/Plan Assessment/Plan IMP SHERRELL HX OF DILATED CM WITH EF OF 15% DEHYDRATION PLAN GENTLE VOLUME EXPANSION HOLD DIURETICS FOR NOW MONITOR FOR CHF MAY BENEFIT FROM AFTER LOAD REDUCTION WITH AN NOAH-I ONCE SHERRELL IS RESOLVED WILL FOLLOW SILVA CERON MD Oct 28, 2016 12:03
[2016-10-28] MEDS: IV NORMAL SALINE 1000ML BAG 1,000 ML IV SCH (12:15)
--- NOTE | 2016-10-28 13:23 | PDOC ---
PROGRESS NOTES Chief Complaint Chief Complaint - SHERRELL - dehydration, improving - dilated cardiomyopathy with EF of 15% - HTN - hyperlipidemia - valve insufficiency - pulmonary embolism - pneumonia - anemia - peripheral neuropathy - osteoarthritis - diabetes History of Present Illness History of Present Illness patient resting and in no acute distress when evaluated this AM. Without new complaints. Pt had been experiencing a great deal of nausea, vomiting and diarrhea a couple days ago, but these have improved. It seems the dehydration is resolving. Cr improved to 1.4 from 2.6. Vitals Vitals Vital Signs Date Time Temp Pulse Resp B/P Pulse Ox O2 Delivery O2 Flow Rate FiO2 10/28/16 10:52 98.1 99 20 91/58 98 Room Air 98.1 Physical Exam General: Alert, Oriented X3, Cooperative, No acute distress Heart: Regular rate, Normal S1 Lungs: Crackles Abdomen: Normal bowel sounds, Soft Extremities: No cyanosis, No edema Skin: No significant lesion Labs LABS Laboratory Tests Test 10/27/16 17:20 10/27/16 17:30 10/28/16 03:55 Urine Collection Type Unknown Urine Color Yellow Urine Clarity Clear Urine pH 6.0 Urine Specific [place] 1.010 Urine Protein Negativemg/dL (NEG-TRACE) Urine Glucose (UA) Negativemg/dL (NEG) Urine Ketones (Stick) Negativemg/dL (NEG) Urine Blood Negative (NEG) Urine Nitrite Negative (NEG) Urine Bilirubin Negative (NEG) Urine Urobilinogen Dipstick 0.2mg/dL (0.2 mg/dL) Urine Leukocyte Esterase Negative (NEG) Urine RBC 0/HPF (0-2) Urine WBC Occ/HPF (0-4) Urine Squamous Epithelial Cells Mod/LPF Urine Amorphous Sediment Present/HPF Urine Bacteria 0/HPF (0-FEW) Urine Hyaline Casts Moderate/HPF Urine Mucus Mod/LPF Urine Opiates Screen Neg (NEG) Urine Methadone Screen Neg (NEG) Urine Barbiturates Neg (NEG) Urine Phencyclidine Screen Neg (NEG) Urine Amphetamine/Methamphetamine Neg (NEG) Urine Benzodiazepines Screen Neg (NEG) Urine Cocaine Screen Neg (NEG) Urine Cannabinoids Screen Neg (NEG) Urine Ethyl Alcohol Neg (NEG) White Blood Count 12.7x10^3/uL (4.0-11.0) 10.6x10^3/uL (4.0-11.0) Red Blood Count 4.83x10^6/uL (3.50-5.40) 4.40x10^6/uL (3.50-5.40) Hemoglobin 13.2g/dL (12.0-15.5) 11.9g/dL (12.0-15.5) Hematocrit 40.0% (36.0-47.0) 37.2% (36.0-47.0) Mean Corpuscular Volume 83fL (79-100) 85fL (79-100) Mean Corpuscular Hemoglobin 27pg (25-35) 27pg (25-35) Mean Corpuscular Hemoglobin Concent 33g/dL (31-37) 32g/dL (31-37) Red Cell Distribution Width 14.1% (11.5-14.5) 14.0% (11.5-14.5) Platelet Count 338x10^3/uL (140-400) 290x10^3/uL (140-400) Neutrophils (%) (Auto) 79% (31-73) 62% (31-73) Lymphocytes (%) (Auto) 12% (24-48) 24% (24-48) Monocytes (%) (Auto) 7% (0-9) 11% (0-9) Eosinophils (%) (Auto) 0% (0-3) 3% (0-3) Basophils (%) (Auto) 1% (0-3) 1% (0-3) Neutrophils # (Auto) 10.1x10^3uL (1.8-7.7) 6.5x10^3uL (1.8-7.7) Lymphocytes # (Auto) 1.6x10^3/uL (1.0-4.8) 2.6x10^3/uL (1.0-4.8) Monocytes # (Auto) 0.9x10^3/uL (0.0-1.1) 1.1x10^3/uL (0.0-1.1) Eosinophils # (Auto) 0.1x10^3/uL (0.0-0.7) 0.3x10^3/uL (0.0-0.7) Basophils # (Auto) 0.1x10^3/uL (0.0-0.2) 0.1x10^3/uL (0.0-0.2) Sodium Level 129mmol/L (136-145) 131mmol/L (136-145) Potassium Level 5.1mmol/L (3.5-5.1) 4.7mmol/L (3.5-5.1) Chloride Level 92mmol/L (98-107) 96mmol/L (98-107) Carbon Dioxide Level 25mmol/L (21-32) 24mmol/L (21-32) Anion Gap 12 (6-14) 11 (6-14) Blood Urea Nitrogen 74mg/dL (7-20) 64mg/dL (7-20) Creatinine 2.6mg/dL (0.6-1.0) 1.4mg/dL (0.6-1.0) Estimated GFR (Cockcroft-Gault) 18.5 37.9 BUN/Creatinine Ratio 28 (6-20) 46 (6-20) Glucose Level 103mg/dL (70-99) 90mg/dL (70-99) Calcium Level 9.3mg/dL (8.5-10.1) 9.0mg/dL (8.5-10.1) Magnesium Level 2.2mg/dL (1.8-2.4) Total Bilirubin 0.7mg/dL (0.2-1.0) 0.8mg/dL (0.2-1.0) Aspartate Amino Transf (AST/SGOT) 16U/L (15-37) 18U/L (15-37) Alanine Aminotransferase (ALT/SGPT) 22U/L (14-59) 17U/L (14-59) Alkaline Phosphatase 121U/L (46-116) 96U/L (46-116) Creatine Kinase 86U/L (26-192) Myoglobin 127ng/mL (9-82) Total Protein 9.0g/dL (6.4-8.2) 7.8g/dL (6.4-8.2) Albumin 4.6g/dL (3.4-5.0) 3.9g/dL (3.4-5.0) Albumin/Globulin Ratio 1.0 (1.0-1.7) 1.0 (1.0-1.7) Review of Systems Review of Systems denies fever, chills denies chest pain, shortness of air denies nausea, vomiting, diarrhea Assessment and Plan Assessmemt and Plan ASSESSMENT: - SHERRELL - dehydration, improving - dilated cardiomyopathy with EF of 15% - HTN - hyperlipidemia - valve insufficiency - pulmonary embolism - pneumonia - anemia - peripheral neuropathy - osteoarthritis - diabetes PLAN: - cont to hold diuretics - cont IVF - encourage PO intake - repeat daily labs; follow BUN/Cr - appreciate subspecialist input - PTOT Problems: Comment Review of Relevant I have reviewed the following items julio (where applicable) has been applied. Labs Laboratory Tests Test 10/27/16 17:20 10/27/16 17:30 10/28/16 03:55 Urine Collection Type Unknown Urine Color Yellow Urine Clarity Clear Urine pH 6.0 Urine Specific [place] 1.010 Urine Protein Negativemg/dL (NEG-TRACE) Urine Glucose (UA) Negativemg/dL (NEG) Urine Ketones (Stick) Negativemg/dL (NEG) Urine Blood Negative (NEG) Urine Nitrite Negative (NEG) Urine Bilirubin Negative (NEG) Urine Urobilinogen Dipstick 0.2mg/dL (0.2 mg/dL) Urine Leukocyte Esterase Negative (NEG) Urine RBC 0/HPF (0-2) Urine WBC Occ/HPF (0-4) Urine Squamous Epithelial Cells Mod/LPF Urine Amorphous Sediment Present/HPF Urine Bacteria 0/HPF (0-FEW) Urine Hyaline Casts Moderate/HPF Urine Mucus Mod/LPF Urine Opiates Screen Neg (NEG) Urine Methadone Screen Neg (NEG) Urine Barbiturates Neg (NEG) Urine Phencyclidine Screen Neg (NEG) Urine Amphetamine/Methamphetamine Neg (NEG) Urine Benzodiazepines Screen Neg (NEG) Urine Cocaine Screen Neg (NEG) Urine Cannabinoids Screen Neg (NEG) Urine Ethyl Alcohol Neg (NEG) White Blood Count 12.7x10^3/uL (4.0-11.0) 10.6x10^3/uL (4.0-11.0) Red Blood Count 4.83x10^6/uL (3.50-5.40) 4.40x10^6/uL (3.50-5.40) Hemoglobin 13.2g/dL (12.0-15.5) 11.9g/dL (12.0-15.5) Hematocrit 40.0% (36.0-47.0) 37.2% (36.0-47.0) Mean Corpuscular Volume 83fL (79-100) 85fL (79-100) Mean Corpuscular Hemoglobin 27pg (25-35) 27pg (25-35) Mean Corpuscular Hemoglobin Concent 33g/dL (31-37) 32g/dL (31-37) Red Cell Distribution Width 14.1% (11.5-14.5) 14.0% (11.5-14.5) Platelet Count 338x10^3/uL (140-400) 290x10^3/uL (140-400) Neutrophils (%) (Auto) 79% (31-73) 62% (31-73) Lymphocytes (%) (Auto) 12% (24-48) 24% (24-48) Monocytes (%) (Auto) 7% (0-9) 11% (0-9) Eosinophils (%) (Auto) 0% (0-3) 3% (0-3) Basophils (%) (Auto) 1% (0-3) 1% (0-3) Neutrophils # (Auto) 10.1x10^3uL (1.8-7.7) 6.5x10^3uL (1.8-7.7) Lymphocytes # (Auto) 1.6x10^3/uL (1.0-4.8) 2.6x10^3/uL (1.0-4.8) Monocytes # (Auto) 0.9x10^3/uL (0.0-1.1) 1.1x10^3/uL (0.0-1.1) Eosinophils # (Auto) 0.1x10^3/uL (0.0-0.7) 0.3x10^3/uL (0.0-0.7) Basophils # (Auto) 0.1x10^3/uL (0.0-0.2) 0.1x10^3/uL (0.0-0.2) Sodium Level 129mmol/L (136-145) 131mmol/L (136-145) Potassium Level 5.1mmol/L (3.5-5.1) 4.7mmol/L (3.5-5.1) Chloride Level 92mmol/L (98-107) 96mmol/L (98-107) Carbon Dioxide Level 25mmol/L (21-32) 24mmol/L (21-32) Anion Gap 12 (6-14) 11 (6-14) Blood Urea Nitrogen 74mg/dL (7-20) 64mg/dL (7-20) Creatinine 2.6mg/dL (0.6-1.0) 1.4mg/dL (0.6-1.0) Estimated GFR (Cockcroft-Gault) 18.5 37.9 BUN/Creatinine Ratio 28 (6-20) 46 (6-20) Glucose Level 103mg/dL (70-99) 90mg/dL (70-99) Calcium Level 9.3mg/dL (8.5-10.1) 9.0mg/dL (8.5-10.1) Magnesium Level 2.2mg/dL (1.8-2.4) Total Bilirubin 0.7mg/dL (0.2-1.0) 0.8mg/dL (0.2-1.0) Aspartate Amino Transf (AST/SGOT) 16U/L (15-37) 18U/L (15-37) Alanine Aminotransferase (ALT/SGPT) 22U/L (14-59) 17U/L (14-59) Alkaline Phosphatase 121U/L (46-116) 96U/L (46-116) Creatine Kinase 86U/L (26-192) Myoglobin 127ng/mL (9-82) Total Protein 9.0g/dL (6.4-8.2) 7.8g/dL (6.4-8.2) Albumin 4.6g/dL (3.4-5.0) 3.9g/dL (3.4-5.0) Albumin/Globulin Ratio 1.0 (1.0-1.7) 1.0 (1.0-1.7) Laboratory Tests Test 10/27/16 17:20 10/27/16 17:30 10/28/16 03:55 Urine Collection Type Unknown Urine Color Yellow Urine Clarity Clear Urine pH 6.0 Urine Specific [place] 1.010 Urine Protein Negativemg/dL (NEG-TRACE) Urine Glucose (UA) Negativemg/dL (NEG) Urine Ketones (Stick) Negativemg/dL (NEG) Urine Blood Negative (NEG) Urine Nitrite Negative (NEG) Urine Bilirubin Negative (NEG) Urine Urobilinogen Dipstick 0.2mg/dL (0.2 mg/dL) Urine Leukocyte Esterase Negative (NEG) Urine RBC 0/HPF (0-2) Urine WBC Occ/HPF (0-4) Urine Squamous Epithelial Cells Mod/LPF Urine Amorphous Sediment Present/HPF Urine Bacteria 0/HPF (0-FEW) Urine Hyaline Casts Moderate/HPF Urine Mucus Mod/LPF Urine Opiates Screen Neg (NEG) Urine Methadone Screen Neg (NEG) Urine Barbiturates Neg (NEG) Urine Phencyclidine Screen Neg (NEG) Urine Amphetamine/Methamphetamine Neg (NEG) Urine Benzodiazepines Screen Neg (NEG) Urine Cocaine Screen Neg (NEG) Urine Cannabinoids Screen Neg (NEG) Urine Ethyl Alcohol Neg (NEG) White Blood Count 12.7x10^3/uL (4.0-11.0) 10.6x10^3/uL (4.0-11.0) Red Blood Count 4.83x10^6/uL (3.50-5.40) 4.40x10^6/uL (3.50-5.40) Hemoglobin 13.2g/dL (12.0-15.5) 11.9g/dL (12.0-15.5) Hematocrit 40.0% (36.0-47.0) 37.2% (36.0-47.0) Mean Corpuscular Volume 83fL (79-100) 85fL (79-100) Mean Corpuscular Hemoglobin 27pg (25-35) 27pg (25-35) Mean Corpuscular Hemoglobin Concent 33g/dL (31-37) 32g/dL (31-37) Red Cell Distribution Width 14.1% (11.5-14.5) 14.0% (11.5-14.5) Platelet Count 338x10^3/uL (140-400) 290x10^3/uL (140-400) Neutrophils (%) (Auto) 79% (31-73) 62% (31-73) Lymphocytes (%) (Auto) 12% (24-48) 24% (24-48) Monocytes (%) (Auto) 7% (0-9) 11% (0-9) Eosinophils (%) (Auto) 0% (0-3) 3% (0-3) Basophils (%) (Auto) 1% (0-3) 1% (0-3) Neutrophils # (Auto) 10.1x10^3uL (1.8-7.7) 6.5x10^3uL (1.8-7.7) Lymphocytes # (Auto) 1.6x10^3/uL (1.0-4.8) 2.6x10^3/uL (1.0-4.8) Monocytes # (Auto) 0.9x10^3/uL (0.0-1.1) 1.1x10^3/uL (0.0-1.1) Eosinophils # (Auto) 0.1x10^3/uL (0.0-0.7) 0.3x10^3/uL (0.0-0.7) Basophils # (Auto) 0.1x10^3/uL (0.0-0.2) 0.1x10^3/uL (0.0-0.2) Sodium Level 129mmol/L (136-145) 131mmol/L (136-145) Potassium Level 5.1mmol/L (3.5-5.1) 4.7mmol/L (3.5-5.1) Chloride Level 92mmol/L (98-107) 96mmol/L (98-107) Carbon Dioxide Level 25mmol/L (21-32) 24mmol/L (21-32) Anion Gap 12 (6-14) 11 (6-14) Blood Urea Nitrogen 74mg/dL (7-20) 64mg/dL (7-20) Creatinine 2.6mg/dL (0.6-1.0) 1.4mg/dL (0.6-1.0) Estimated GFR (Cockcroft-Gault) 18.5 37.9 BUN/Creatinine Ratio 28 (6-20) 46 (6-20) Glucose Level 103mg/dL (70-99) 90mg/dL (70-99) Calcium Level 9.3mg/dL (8.5-10.1) 9.0mg/dL (8.5-10.1) Magnesium Level 2.2mg/dL (1.8-2.4) Total Bilirubin 0.7mg/dL (0.2-1.0) 0.8mg/dL (0.2-1.0) Aspartate Amino Transf (AST/SGOT) 16U/L (15-37) 18U/L (15-37) Alanine Aminotransferase (ALT/SGPT) 22U/L (14-59) 17U/L (14-59) Alkaline Phosphatase 121U/L (46-116) 96U/L (46-116) Creatine Kinase 86U/L (26-192) Myoglobin 127ng/mL (9-82) Total Protein 9.0g/dL (6.4-8.2) 7.8g/dL (6.4-8.2) Albumin 4.6g/dL (3.4-5.0) 3.9g/dL (3.4-5.0) Albumin/Globulin Ratio 1.0 (1.0-1.7) 1.0 (1.0-1.7) Medications Current Medications Lorazepam (Ativan) 2 mg 1X ONCE IV Last administered on 10/27/16 18:16; Start 10/27/16 at 17:15; Stop 10/27/16 at 17:16; Status DC Diphenhydramine HCl 25 mg 25 mg 1X ONCE IVP Last administered on 10/27/16 17: 36; Start 10/27/16 at 17:15; Stop 10/27/16 at 17:16; Status DC Sodium Chloride (Iv Sodium Chloride 0.9% 1000ml Bag) 1,000 ml @ 1,000 mls/hr 1X ONCE IV Last administered on 10/27/16 17:36; Start 10/27/16 at 17:00; Stop 10/27/16 at 17:59; Status DC Ondansetron HCl (Zofran) 4 mg PRN Q8HRS PRN IV NAUSEA/VOMITING; Start 10/27/16 at 19:30; Stop 10/28/16 at 19:29 Fentanyl Citrate 50 mcg 50 mcg PRN Q2HR PRN IV PAIN; Start 10/27/16 at 19:30; Stop 10/28/16 at 19:29 Sodium Chloride (Iv Sodium Chloride 0.9% 1000ml Bag) 1,000 ml @ 150 mls/hr Q6H40M IV ; Start 10/27/16 at 19:30; Stop 10/27/16 at 19:49; Status DC Acetaminophen (Tylenol) 650 mg PRN Q4HRS PRN PO FEVER; Start 10/27/16 at 19:30 ; Stop 10/28/16 at 19:29 Acetaminophen (Tylenol) 325 mg PRN Q6HRS PRN PO MILD PAIN / TEMP; Start at 20:00 Hydralazine HCl (Apresoline) 10 mg PRN Q4HRS PRN IVP ELEVATED BP, SEE COMMENTS ; Start 10/27/16 at 20:00 Ondansetron HCl (Zofran) 4 mg PRN Q8HRS PRN IV NAUSEA/VOMITING; Start 10/27/16 at 20:00 Albuterol Sulfate 2.5 mg 2.5 mg PRN Q4HRS PRN NEB SHORTNESS OF BREATH; Start at 20:00 Sodium Chloride (Iv Sodium Chloride 0.9% 1000ml Bag) 1,000 ml @ 50 mls/hr 1X ONCE IV Last administered on 10/27/16t 20:14; Start 10/27/16 at 20:00; Stop at 15:59 Lorazepam 1 mg 1 mg PRN QHS PRN PO ANXIETY / AGITATION; Start 10/27/16 at 21:00 Sodium Chloride (Iv Sodium Chloride 0.9% 1000ml Bag) 1,000 ml @ 60 mls/hr [id number] IV ; Start 10/28/16 at 12:15 Active Scripts Active Aldactone (Spironolactone) 25 Mg Tablet 25 Mg PO DAILY Lasix (Furosemide) 40 Mg Tablet 40 Mg PO DAILY Reported Spironolactone 50 Mg Tablet 50 Mg PO DAILY Cyclobenzaprine Hcl 10 Mg Tablet 10 Mg PO TID PRN Atorvastatin Calcium 20 Mg Tablet 20 Mg PO DAILY Refresh Optive Eye Drops (Carboxymethylcellulos/Glycerin) 15 Ml Drops 1 Drop EACHEYE QID PRN Tramadol Hcl 50 Mg Tablet 50 Mg PO Q8HRS PRN NITROGLYCERIN SubLingual (Nitroglycerin) 0.4 Mg Tab.subl 0.4 Mg SL PRN Q5MIN PRN Daily Vitamin (Multivitamin) 1 Each Tablet 1 Each PO DAILY B-12 (Cyanocobalamin (Vitamin B-12)) 500 Mcg Tablet 500 Mcg PO DAILY Albuterol Sulfate Hfa Inhaler (Albuterol Sulfate) 8.5 Gm Hfa.aer.ad 2 Puff INH Q4HRS PRN Aspirin Ec (Aspirin) 81 Mg Tablet.dr 81 Mg PO DAILY Vitals/I & O Vital Sign - Last 24 Hours 10/27/16 10/27/16 10/27/16 10/27/16 16:09 17:33 17:36 17:51 Temp 98.3 98.3 Pulse 105 111 100 96 Resp 18 B/P 89/59 92/56 88/52 89/54 Pulse Ox 99 98 100 O2 Delivery Room Air Room Air Room Air 10/27/16 10/27/16 10/27/16 10/27/16 18:06 18:21 20:15 20:47 Pulse 99 101 93 99 Resp B/P 94/60 98/61 85/52 108/66 Pulse Ox 100 100 100 100 O2 Delivery Room Air Room Air Room Air Room Air 10/27/16 10/27/16 10/27/16 10/27/16 21:17 21:47 22:38 22:38 Temp 98.3 98.3 98.3 98.3 Pulse 92 94 103 103 Resp 18 B/P 103/64 95/55 73/54 73/54 Pulse Ox 100 100 94 94 O2 Delivery Room Air Room Air Room Air Room Air 10/27/16 10/28/16 10/28/16 10/28/16 23:07 02:34 07:00 08:00 Temp 97.9 97.7 97.9 97.7 Pulse 96 94 Resp B/P 75/43 97/62 Pulse Ox 96 96 O2 Delivery Room Air Room Air Room Air Room Air 10/28/16 10:52 Temp 98.1 98.1 Pulse 99 Resp 20 B/P 91/58 Pulse Ox 98 O2 Delivery Room Air Intake and Output 10/27/16 10/27/16 10/28/16 15:00 23:00 07:00 Intake Total 1240 ml 800 ml Balance 1240 ml 800 ml LESIA PEACE III DO Oct 28, 2016 13:23
[2016-10-28 14:27] VITALS: BP 93/64
[2016-10-28 19:00] VITALS: BP 96/66
[2016-10-28 23:00] VITALS: BP 100/67
[2016-10-28] MEDS: TRAMADOL 50 MG TABLET. PO PRN (23:31)
[2016-10-28] MEDS: BENZOCAINE 10% ORAL GEL 7GM TUBE. TP PRN (23:34)
[2016-10-29 03:00] VITALS: BP 104/60
[2016-10-29] MEDS: ACETAMINOPHEN 325 MG TABLET. PO PRN ×4 (03:56→22:16)
[2016-10-29] MEDS: IV NORMAL SALINE 1000ML BAG 1,000 ML IV SCH (03:56)
[2016-10-29] MEDS: TRAMADOL 50 MG TABLET. PO PRN ×3 (05:46→22:16)
[2016-10-29 06:04] LABS: BASO # 0.1 x10^3/uL (0.0-0.2); BASO % 1 % (0-3); EOS % 3 % (0-3); HEMATOCRIT 36.8 % (36.0-47.0); LYMPH % 19 % (24-48); MEAN CORPUSCULAR HEMOGLOBIN 28 pg (25-35); MEAN CORPUSCULAR HGB CONC 33 g/dL (31-37); MEAN CORPUSCULAR VOLUME 85 fL (79-100); MONO % 10 % (0-9); NEUT % 67 % (31-73); PLATELET COUNT 285 x10^3/uL (140-400); RED BLOOD COUNT 4.34 x10^6/uL (3.50-5.40); RED CELL DISTRIBUTION WIDTH 13.7 % (11.5-14.5); WHITE BLOOD COUNT 10.3 x10^3/uL (4.0-11.0)
[2016-10-29 06:20] LABS: GFR 55.8; POTASSIUM 5.2 mmol/L (3.5-5.1)
[2016-10-29 07:00] VITALS: BP 82/34
[2016-10-29 10:47] VITALS: BP 96/50
--- NOTE | 2016-10-29 11:24 | PDOC ---
Renal-Progress Notes Subjective Notes Notes FEELING BETTER History of Present Illness Hx of present illness BETTER Vitals Vitals Vital Signs Date Time Temp Pulse Resp B/P Pulse Ox O2 Delivery O2 Flow Rate FiO2 10/29/16 10:47 96.8 95 18 96/50 99 Room Air 96.8 Weight Weight [ ] I.O. Intake and Output Intake and Output 10/29/16 07:00 Intake Total 1440 ml Output Total 200 ml Balance 1240 ml Intake Oral 1440 ml Output Urine Total 200 ml # Voids 4 # Bowel Movements 1 Labs Labs Laboratory Tests Test 10/29/16 05:10 White Blood Count 10.3x10^3/uL (4.0-11.0) Red Blood Count 4.34x10^6/uL (3.50-5.40) Hemoglobin 12.0g/dL (12.0-15.5) Hematocrit 36.8% (36.0-47.0) Mean Corpuscular Volume 85fL (79-100) Mean Corpuscular Hemoglobin 28pg (25-35) Mean Corpuscular Hemoglobin Concent 33g/dL (31-37) Red Cell Distribution Width 13.7% (11.5-14.5) Platelet Count 285x10^3/uL (140-400) Neutrophils (%) (Auto) 67% (31-73) Lymphocytes (%) (Auto) 19% (24-48) Monocytes (%) (Auto) 10% (0-9) Eosinophils (%) (Auto) 3% (0-3) Basophils (%) (Auto) 1% (0-3) Neutrophils # (Auto) 6.9x10^3uL (1.8-7.7) Lymphocytes # (Auto) 2.0x10^3/uL (1.0-4.8) Monocytes # (Auto) 1.1x10^3/uL (0.0-1.1) Eosinophils # (Auto) 0.3x10^3/uL (0.0-0.7) Basophils # (Auto) 0.1x10^3/uL (0.0-0.2) Sodium Level 130mmol/L (136-145) Potassium Level 5.2mmol/L (3.5-5.1) Chloride Level 96mmol/L (98-107) Carbon Dioxide Level 23mmol/L (21-32) Anion Gap 11 (6-14) Blood Urea Nitrogen 39mg/dL (7-20) Creatinine 1.0mg/dL (0.6-1.0) Estimated GFR (Cockcroft-Gault) 55.8 Glucose Level 93mg/dL (70-99) Calcium Level 9.0mg/dL (8.5-10.1) Review of Systems Constitutional: yes: alert, oriented, weakness Ears/Nose/Throat: Yes: no symptom reported Eyes: Yes: no symptom reported Genitourinary: Yes: no symptom reported Skin: Yes no symptom reported Physical Exam General Appearance: no apparent distress Skin: warm Respiratory: bilateral CTA Heart: S1S2, RRR Abdomen: soft, bowel sounds present Extremities: pulses present Neurology: alert, oriented Musculoskeletal: Osteoarthritis Assessment Assessment IMP [id number] NL MILD HYPERKALEMIA SEVERE CM WITH EF 15% PLAN STOP IVF RESUME LASIX CONT TO HOLD ALDACTONE SILVA CERON MD Oct 29, 2016 11:24
--- NOTE | 2016-10-29 11:33 | PDOC ---
PROGRESS NOTES Chief Complaint Chief Complaint - SHERRELL, resolving - dehydration, improving - dilated cardiomyopathy with EF of 15% - HTN - hyperlipidemia - valve insufficiency - pulmonary embolism - pneumonia - anemia - peripheral neuropathy - osteoarthritis - diabetes History of Present Illness History of Present Illness Patient resting and in no acute distress when evaluated this AM. Reporting some nausea, but no vomiting. It seems the dehydration is resolving. Cr improved to 1.0 from 1.4. Pt has been taken off IVF and is po hydration. Vitals Vitals Vital Signs Date Time Temp Pulse Resp B/P Pulse Ox O2 Delivery O2 Flow Rate FiO2 10/29/16 10:47 96.8 95 18 96/50 99 Room Air 96.8 Physical Exam General: Alert, Oriented X3, Cooperative, No acute distress Heart: Regular rate, Normal S1 Lungs: Crackles Abdomen: Normal bowel sounds, Soft Extremities: No cyanosis, No edema Skin: No significant lesion Labs LABS Laboratory Tests Test 10/29/16 05:10 White Blood Count 10.3x10^3/uL (4.0-11.0) Red Blood Count 4.34x10^6/uL (3.50-5.40) Hemoglobin 12.0g/dL (12.0-15.5) Hematocrit 36.8% (36.0-47.0) Mean Corpuscular Volume 85fL (79-100) Mean Corpuscular Hemoglobin 28pg (25-35) Mean Corpuscular Hemoglobin Concent 33g/dL (31-37) Red Cell Distribution Width 13.7% (11.5-14.5) Platelet Count 285x10^3/uL (140-400) Neutrophils (%) (Auto) 67% (31-73) Lymphocytes (%) (Auto) 19% (24-48) Monocytes (%) (Auto) 10% (0-9) Eosinophils (%) (Auto) 3% (0-3) Basophils (%) (Auto) 1% (0-3) Neutrophils # (Auto) 6.9x10^3uL (1.8-7.7) Lymphocytes # (Auto) 2.0x10^3/uL (1.0-4.8) Monocytes # (Auto) 1.1x10^3/uL (0.0-1.1) Eosinophils # (Auto) 0.3x10^3/uL (0.0-0.7) Basophils # (Auto) 0.1x10^3/uL (0.0-0.2) Sodium Level 130mmol/L (136-145) Potassium Level 5.2mmol/L (3.5-5.1) Chloride Level 96mmol/L (98-107) Carbon Dioxide Level 23mmol/L (21-32) Anion Gap 11 (6-14) Blood Urea Nitrogen 39mg/dL (7-20) Creatinine 1.0mg/dL (0.6-1.0) Estimated GFR (Cockcroft-Gault) 55.8 Glucose Level 93mg/dL (70-99) Calcium Level 9.0mg/dL (8.5-10.1) Review of Systems Review of Systems denies fever, chills denies chest pain, shortness of air + nausea, denies vomiting Assessment and Plan Assessmemt and Plan ASSESSMENT: - SHERRELL, resolving - dehydration, improving - dilated cardiomyopathy with EF of 15% - HTN - hyperlipidemia - valve insufficiency - pulmonary embolism - pneumonia - anemia - peripheral neuropathy - osteoarthritis - diabetes PLAN: - probable discharge tomorrow if azotemia resolves; dehydration resolving - appreciate nephrology recommendations - encourage PO intake - repeat daily labs; follow BUN/Cr - PTOT Problems: Comment Review of Relevant I have reviewed the following items julio (where applicable) has been applied. Labs Laboratory Tests Test 10/27/16 17:20 10/27/16 17:30 10/28/16 03:55 10/29/16 05:10 Urine Collection Type Unknown Urine Color Yellow Urine Clarity Clear Urine pH 6.0 Urine Specific [place] 1.010 Urine Protein Negativemg/dL (NEG-TRACE) Urine Glucose (UA) Negativemg/dL (NEG) Urine Ketones (Stick) Negativemg/dL (NEG) Urine Blood Negative (NEG) Urine Nitrite Negative (NEG) Urine Bilirubin Negative (NEG) Urine Urobilinogen Dipstick 0.2mg/dL (0.2 mg/dL) Urine Leukocyte Esterase Negative (NEG) Urine RBC 0/HPF (0-2) Urine WBC Occ/HPF (0-4) Urine Squamous Epithelial Cells Mod/LPF Urine Amorphous Sediment Present/HPF Urine Bacteria 0/HPF (0-FEW) Urine Hyaline Casts Moderate/HPF Urine Mucus Mod/LPF Urine Opiates Screen Neg (NEG) Urine Methadone Screen Neg (NEG) Urine Barbiturates Neg (NEG) Urine Phencyclidine Screen Neg (NEG) Urine Amphetamine/Methamphetamine Neg (NEG) Urine Benzodiazepines Screen Neg (NEG) Urine Cocaine Screen Neg (NEG) Urine Cannabinoids Screen Neg (NEG) Urine Ethyl Alcohol Neg (NEG) White Blood Count 12.7x10^3/uL (4.0-11.0) 10.6x10^3/uL (4.0-11.0) 10.3x10^3/uL (4.0-11.0) Red Blood Count 4.83x10^6/uL (3.50-5.40) 4.40x10^6/uL (3.50-5.40) 4.34x10^6/uL (3.50-5.40) Hemoglobin 13.2g/dL (12.0-15.5) 11.9g/dL (12.0-15.5) 12.0g/dL (12.0-15.5) Hematocrit 40.0% (36.0-47.0) 37.2% (36.0-47.0) 36.8% (36.0-47.0) Mean Corpuscular Volume 83fL (79-100) 85fL (79-100) 85fL (79-100) Mean Corpuscular Hemoglobin 27pg (25-35) 27pg (25-35) 28pg (25-35) Mean Corpuscular Hemoglobin Concent 33g/dL (31-37) 32g/dL (31-37) 33g/dL (31-37) Red Cell Distribution Width 14.1% (11.5-14.5) 14.0% (11.5-14.5) 13.7% (11.5-14.5) Platelet Count 338x10^3/uL (140-400) 290x10^3/uL (140-400) 285x10^3/uL (140-400) Neutrophils (%) (Auto) 79% (31-73) 62% (31-73) 67% (31-73) Lymphocytes (%) (Auto) 12% (24-48) 24% (24-48) 19% (24-48) Monocytes (%) (Auto) 7% (0-9) 11% (0-9) 10% (0-9) Eosinophils (%) (Auto) 0% (0-3) 3% (0-3) 3% (0-3) Basophils (%) (Auto) 1% (0-3) 1% (0-3) 1% (0-3) Neutrophils # (Auto) 10.1x10^3uL (1.8-7.7) 6.5x10^3uL (1.8-7.7) 6.9x10^3uL (1.8-7.7) Lymphocytes # (Auto) 1.6x10^3/uL (1.0-4.8) 2.6x10^3/uL (1.0-4.8) 2.0x10^3/uL (1.0-4.8) Monocytes # (Auto) 0.9x10^3/uL (0.0-1.1) 1.1x10^3/uL (0.0-1.1) 1.1x10^3/uL (0.0-1.1) Eosinophils # (Auto) 0.1x10^3/uL (0.0-0.7) 0.3x10^3/uL (0.0-0.7) 0.3x10^3/uL (0.0-0.7) Basophils # (Auto) 0.1x10^3/uL (0.0-0.2) 0.1x10^3/uL (0.0-0.2) 0.1x10^3/uL (0.0-0.2) Sodium Level 129mmol/L (136-145) 131mmol/L (136-145) 130mmol/L (136-145) Potassium Level 5.1mmol/L (3.5-5.1) 4.7mmol/L (3.5-5.1) 5.2mmol/L (3.5-5.1) Chloride Level 92mmol/L (98-107) 96mmol/L (98-107) 96mmol/L (98-107) Carbon Dioxide Level 25mmol/L (21-32) 24mmol/L (21-32) 23mmol/L (21-32) Anion Gap 12 (6-14) 11 (6-14) 11 (6-14) Blood Urea Nitrogen 74mg/dL (7-20) 64mg/dL (7-20) 39mg/dL (7-20) Creatinine 2.6mg/dL (0.6-1.0) 1.4mg/dL (0.6-1.0) 1.0mg/dL (0.6-1.0) Estimated GFR (Cockcroft-Gault) 18.5 37.9 55.8 BUN/Creatinine Ratio 28 (6-20) 46 (6-20) Glucose Level 103mg/dL (70-99) 90mg/dL (70-99) 93mg/dL (70-99) Calcium Level 9.3mg/dL (8.5-10.1) 9.0mg/dL (8.5-10.1) 9.0mg/dL (8.5-10.1) Magnesium Level 2.2mg/dL (1.8-2.4) Total Bilirubin 0.7mg/dL (0.2-1.0) 0.8mg/dL (0.2-1.0) Aspartate Amino Transf (AST/SGOT) 16U/L (15-37) 18U/L (15-37) Alanine Aminotransferase (ALT/SGPT) 22U/L (14-59) 17U/L (14-59) Alkaline Phosphatase 121U/L (46-116) 96U/L (46-116) Creatine Kinase 86U/L (26-192) Myoglobin 127ng/mL (9-82) Total Protein 9.0g/dL (6.4-8.2) 7.8g/dL (6.4-8.2) Albumin 4.6g/dL (3.4-5.0) 3.9g/dL (3.4-5.0) Albumin/Globulin Ratio 1.0 (1.0-1.7) 1.0 (1.0-1.7) Laboratory Tests Test 10/29/16 05:10 White Blood Count 10.3x10^3/uL (4.0-11.0) Red Blood Count 4.34x10^6/uL (3.50-5.40) Hemoglobin 12.0g/dL (12.0-15.5) Hematocrit 36.8% (36.0-47.0) Mean Corpuscular Volume 85fL (79-100) Mean Corpuscular Hemoglobin 28pg (25-35) Mean Corpuscular Hemoglobin Concent 33g/dL (31-37) Red Cell Distribution Width 13.7% (11.5-14.5) Platelet Count 285x10^3/uL (140-400) Neutrophils (%) (Auto) 67% (31-73) Lymphocytes (%) (Auto) 19% (24-48) Monocytes (%) (Auto) 10% (0-9) Eosinophils (%) (Auto) 3% (0-3) Basophils (%) (Auto) 1% (0-3) Neutrophils # (Auto) 6.9x10^3uL (1.8-7.7) Lymphocytes # (Auto) 2.0x10^3/uL (1.0-4.8) Monocytes # (Auto) 1.1x10^3/uL (0.0-1.1) Eosinophils # (Auto) 0.3x10^3/uL (0.0-0.7) Basophils # (Auto) 0.1x10^3/uL (0.0-0.2) Sodium Level 130mmol/L (136-145) Potassium Level 5.2mmol/L (3.5-5.1) Chloride Level 96mmol/L (98-107) Carbon Dioxide Level 23mmol/L (21-32) Anion Gap 11 (6-14) Blood Urea Nitrogen 39mg/dL (7-20) Creatinine 1.0mg/dL (0.6-1.0) Estimated GFR (Cockcroft-Gault) 55.8 Glucose Level 93mg/dL (70-99) Calcium Level 9.0mg/dL (8.5-10.1) Medications Current Medications Lorazepam (Ativan) 2 mg 1X ONCE IV Last administered on 10/27/16 18:16; Start 10/27/16 at 17:15; Stop 10/27/16 at 17:16; Status DC Diphenhydramine HCl 25 mg 25 mg 1X ONCE IVP Last administered on 10/27/16 17: 36; Start 10/27/16 at 17:15; Stop 10/27/16 at 17:16; Status DC Sodium Chloride (Iv Sodium Chloride 0.9% 1000ml Bag) 1,000 ml @ 1,000 mls/hr 1X ONCE IV Last administered on 10/27/16 17:36; Start 10/27/16 at 17:00; Stop 10/27/16 at 17:59; Status DC Ondansetron HCl (Zofran) 4 mg PRN Q8HRS PRN IV NAUSEA/VOMITING; Start 10/27/16 at 19:30; Stop 10/28/16 at 19:29; Status DC Fentanyl Citrate 50 mcg 50 mcg PRN Q2HR PRN IV PAIN; Start 10/27/16 at 19:30; Stop 10/28/16 at 19:29; Status DC Sodium Chloride (Iv Sodium Chloride 0.9% 1000ml Bag) 1,000 ml @ 150 mls/hr Q6H40M IV ; Start 10/27/16 at 19:30; Stop 10/27/16 at 19:49; Status DC Acetaminophen (Tylenol) 650 mg PRN Q4HRS PRN PO FEVER Last administered on 10/28 18:23; Start 10/27/16 at 19:30; Stop 10/28/16 at 19:29; Status DC Acetaminophen (Tylenol) 325 mg PRN Q6HRS PRN PO MILD PAIN / TEMP Last administered on 10/29/16 10:48; Start 10/27/16 at 20:00 Hydralazine HCl (Apresoline) 10 mg PRN Q4HRS PRN IVP ELEVATED BP, SEE COMMENTS ; Start 10/27/16 at 20:00 Ondansetron HCl (Zofran) 4 mg PRN Q8HRS PRN IV NAUSEA/VOMITING; Start 10/27/16 at 20:00 Albuterol Sulfate 2.5 mg 2.5 mg PRN Q4HRS PRN NEB SHORTNESS OF BREATH; Start at 20:00 Sodium Chloride (Iv Sodium Chloride 0.9% 1000ml Bag) 1,000 ml @ 50 mls/hr 1X ONCE IV Last administered on 10/27/16 20:14; Start 10/27/16 at 20:00; Stop at 15:59; Status DC Lorazepam 1 mg 1 mg PRN QHS PRN PO ANXIETY / AGITATION Last administered on 03:55; Start 10/27/16 at 21:00 Sodium Chloride (Iv Sodium Chloride 0.9% 1000ml Bag) 1,000 ml @ 60 mls/hr [id number] IV Last administered on 10/29/16 03:56; Start 10/28/16 at 12:15; Stop 10/29/16 at 11:25; Status DC Tramadol HCl (Ultram) 50 mg PRN Q6HRS PRN PO MODERATE PAIN Last administered on 10/29/16 05:46; Start 10/28/16 at 23:00 Benzocaine (Ora-Jel) 1 stefany PRN QID PRN TP ORAL PAIN Last administered on 23:34; Start 10/28/16 at 23:00 Furosemide (Lasix) 40 mg DAILY PO ; Start 10/29/16 at 12:00 Active Scripts Active Aldactone (Spironolactone) 25 Mg Tablet 25 Mg PO DAILY Lasix (Furosemide) 40 Mg Tablet 40 Mg PO DAILY Reported Spironolactone 50 Mg Tablet 50 Mg PO DAILY Cyclobenzaprine Hcl 10 Mg Tablet 10 Mg PO TID PRN Atorvastatin Calcium 20 Mg Tablet 20 Mg PO DAILY Refresh Optive Eye Drops (Carboxymethylcellulos/Glycerin) 15 Ml Drops 1 Drop EACHEYE QID PRN Tramadol Hcl 50 Mg Tablet 50 Mg PO Q8HRS PRN NITROGLYCERIN SubLingual (Nitroglycerin) 0.4 Mg Tab.subl 0.4 Mg SL PRN Q5MIN PRN Daily Vitamin (Multivitamin) 1 Each Tablet 1 Each PO DAILY B-12 (Cyanocobalamin (Vitamin B-12)) 500 Mcg Tablet 500 Mcg PO DAILY Albuterol Sulfate Hfa Inhaler (Albuterol Sulfate) 8.5 Gm Hfa.aer.ad 2 Puff INH Q4HRS PRN Aspirin Ec (Aspirin) 81 Mg Tablet.dr 81 Mg PO DAILY Vitals/I & O Vital Sign - Last 24 Hours 10/28/16 10/28/16 10/28/16 10/28/16 14:27 19:00 20:00 23:00 Temp 98.6 98.2 97.5 98.6 98.2 97.5 Pulse 108 105 103 Resp 20 18 18 B/P 93/64 96/66 100/67 Pulse Ox 100 100 100 O2 Delivery Room Air Room Air 10/28/16 10/29/16 10/29/16 10/29/16 23:31 03:00 05:46 06:46 Temp 98.6 98.6 Pulse 100 Resp 16 B/P 104/60 Pulse Ox 98 O2 Delivery Room Air Room Air Room Air 10/29/16 10/29/16 10/29/16 07:00 08:00 10:47 Temp 97.5 96.8 97.5 96.8 Pulse 95 95 Resp 20 18 B/P 82/34 96/50 Pulse Ox 97 99 O2 Delivery Room Air Room Air Room Air Intake and Output 10/28/16 10/28/16 10/29/16 15:00 23:00 07:00 Intake Total 120 ml 520 ml 800 ml Output Total 200 ml Balance 120 ml 520 ml 600 ml LESIA PEACE III DO Oct 29, 2016 11:33
[2016-10-29] MEDS: FUROSEMIDE 40 MG TABLET PO SCH (12:00)
--- NOTE | 2016-10-29 14:02 | EKG ---
[facility] [address] [place] [address] Test Date: 2016-10-27 Test Time: 15:21:32 Pat Name: PATRICE VELASCO Department: Room: 548 1 Gender: F [employer] Crew Chief: JAUN : 1950 Requested By: CARLOS BOOKER Order Number: [id number] Reading MD: Shantelle Pemberton Measurements Intervals [place] Rate: 112 P: 32 MS: 170 QRS: 1 QRSD: 100 T: 67 QT: 300 QTc: 411 Interpretive Statements SINUS TACHYCARDIA VENTRICULAR PREMATURE COMPLEX(ES) LEFT ATRIAL ABNORMALITY ABNORMAL ECG Electronically Signed On 10-30-2016 19:52:01 CDT by Shantelle Pemberton
[2016-10-29 14:35] VITALS: BP 102/71
[2016-10-29] MEDS: BENZOCAINE 10% ORAL GEL 7GM TUBE. TP PRN (16:40)
[2016-10-29 19:00] VITALS: BP 92/67
[2016-10-29 23:00] VITALS: BP 103/79
[2016-10-30 03:00] VITALS: BP 110/62
[2016-10-30 04:50] LABS: BASO # 0.1 x10^3/uL (0.0-0.2); BASO % 1 % (0-3); EOS % 2 % (0-3); HEMATOCRIT 38.2 % (36.0-47.0); HEMOGLOBIN 12.4 g/dL (12.0-15.5); LYMPH # 2.3 x10^3/uL (1.0-4.8); LYMPH % 23 % (24-48); MEAN CORPUSCULAR HEMOGLOBIN 27 pg (25-35); MEAN CORPUSCULAR HGB CONC 33 g/dL (31-37); MEAN CORPUSCULAR VOLUME 84 fL (79-100); MONO % 8 % (0-9); NEUT % 66 % (31-73); PLATELET COUNT 282 x10^3/uL (140-400); RED BLOOD COUNT 4.55 x10^6/uL (3.50-5.40); WHITE BLOOD COUNT 9.9 x10^3/uL (4.0-11.0)
[2016-10-30 05:03] LABS: CALCIUM 9.2 mg/dL (8.5-10.1); CREATININE 0.8 mg/dL (0.6-1.0); GFR 72.2; POTASSIUM 5.5 mmol/L (3.5-5.1)
[2016-10-30 07:00] VITALS: BP 102/72
[2016-10-30] MEDS: FUROSEMIDE 40 MG TABLET PO SCH ×2 (08:15→14:50)
--- NOTE | 2016-10-30 09:36 | PDOC ---
PROGRESS NOTES Chief Complaint Chief Complaint - SHERRELL, resolving - dehydration, improving - dilated cardiomyopathy with EF of 15% - HTN - hyperlipidemia - valve insufficiency - pulmonary embolism - pneumonia - anemia - peripheral neuropathy - osteoarthritis - diabetes History of Present Illness History of Present Illness Patient resting and in no acute distress when evaluated this AM. It seems the dehydration is virtually resolved. Pt reports feeling relatively well. Explained to the pt the challenge of dosing her Lasix in a way that will maximize treatment for heart failure, but maintain adequate hydration and kidney health. Cr improved to 0.8. BUN decreased to 28. Pt agrees to see outpatient stream control officer in 1 wk. Vitals Vitals Vital Signs Date Time Temp Pulse Resp B/P Pulse Ox O2 Delivery O2 Flow Rate FiO2 10/30/16 07:00 98.7 95 18 102/72 Room Air 98.7 10/30/16 03:00 100 Physical Exam General: Alert, Oriented X3, Cooperative, No acute distress Heart: Regular rate, Normal S1 Lungs: Crackles Abdomen: Normal bowel sounds, Soft Extremities: No cyanosis, No edema Skin: No significant lesion Labs LABS Laboratory Tests Test 10/30/16 03:50 White Blood Count 9.9x10^3/uL (4.0-11.0) Red Blood Count 4.55x10^6/uL (3.50-5.40) Hemoglobin 12.4g/dL (12.0-15.5) Hematocrit 38.2% (36.0-47.0) Mean Corpuscular Volume 84fL (79-100) Mean Corpuscular Hemoglobin 27pg (25-35) Mean Corpuscular Hemoglobin Concent 33g/dL (31-37) Red Cell Distribution Width 14.0% (11.5-14.5) Platelet Count 282x10^3/uL (140-400) Neutrophils (%) (Auto) 66% (31-73) Lymphocytes (%) (Auto) 23% (24-48) Monocytes (%) (Auto) 8% (0-9) Eosinophils (%) (Auto) 2% (0-3) Basophils (%) (Auto) 1% (0-3) Neutrophils # (Auto) 6.6x10^3uL (1.8-7.7) Lymphocytes # (Auto) 2.3x10^3/uL (1.0-4.8) Monocytes # (Auto) 0.8x10^3/uL (0.0-1.1) Eosinophils # (Auto) 0.2x10^3/uL (0.0-0.7) Basophils # (Auto) 0.1x10^3/uL (0.0-0.2) Sodium Level 133mmol/L (136-145) Potassium Level 5.5mmol/L (3.5-5.1) Chloride Level 98mmol/L (98-107) Carbon Dioxide Level 23mmol/L (21-32) Anion Gap 12 (6-14) Blood Urea Nitrogen 28mg/dL (7-20) Creatinine 0.8mg/dL (0.6-1.0) Estimated GFR (Cockcroft-Gault) 72.2 Glucose Level 99mg/dL (70-99) Calcium Level 9.2mg/dL (8.5-10.1) Review of Systems Review of Systems denies fever, chills denies chest pain, shortness of air + nausea, denies vomiting Assessment and Plan Assessmemt and Plan ASSESSMENT: - SHERRELL, resolving - dehydration, improving - dilated cardiomyopathy with EF of 15% - HTN - hyperlipidemia - valve insufficiency - pulmonary embolism - pneumonia - anemia - peripheral neuropathy - osteoarthritis - diabetes PLAN: - probable discharge today if ok with nephrology; azotemia/dehydration resolving. - recommended outpatient f/u with PCP and/or Liturgical Music Director in 1 wk - home with Lasix 40 mg - appreciate nephrology recommendations - while admitted repeat daily labs; follow BUN/Cr - PTOT Problems: Comment Review of Relevant I have reviewed the following items julio (where applicable) has been applied. Labs Laboratory Tests Test 10/28/16 21:30 10/29/16 05:10 10/30/16 03:50 Clostridium difficile Toxin (PCR) Negative (Negative) White Blood Count 10.3x10^3/uL (4.0-11.0) 9.9x10^3/uL (4.0-11.0) Red Blood Count 4.34x10^6/uL (3.50-5.40) 4.55x10^6/uL (3.50-5.40) Hemoglobin 12.0g/dL (12.0-15.5) 12.4g/dL (12.0-15.5) Hematocrit 36.8% (36.0-47.0) 38.2% (36.0-47.0) Mean Corpuscular Volume 85fL (79-100) 84fL (79-100) Mean Corpuscular Hemoglobin 28pg (25-35) 27pg (25-35) Mean Corpuscular Hemoglobin Concent 33g/dL (31-37) 33g/dL (31-37) Red Cell Distribution Width 13.7% (11.5-14.5) 14.0% (11.5-14.5) Platelet Count 285x10^3/uL (140-400) 282x10^3/uL (140-400) Neutrophils (%) (Auto) 67% (31-73) 66% (31-73) Lymphocytes (%) (Auto) 19% (24-48) 23% (24-48) Monocytes (%) (Auto) 10% (0-9) 8% (0-9) Eosinophils (%) (Auto) 3% (0-3) 2% (0-3) Basophils (%) (Auto) 1% (0-3) 1% (0-3) Neutrophils # (Auto) 6.9x10^3uL (1.8-7.7) 6.6x10^3uL (1.8-7.7) Lymphocytes # (Auto) 2.0x10^3/uL (1.0-4.8) 2.3x10^3/uL (1.0-4.8) Monocytes # (Auto) 1.1x10^3/uL (0.0-1.1) 0.8x10^3/uL (0.0-1.1) Eosinophils # (Auto) 0.3x10^3/uL (0.0-0.7) 0.2x10^3/uL (0.0-0.7) Basophils # (Auto) 0.1x10^3/uL (0.0-0.2) 0.1x10^3/uL (0.0-0.2) Sodium Level 130mmol/L (136-145) 133mmol/L (136-145) Potassium Level 5.2mmol/L (3.5-5.1) 5.5mmol/L (3.5-5.1) Chloride Level 96mmol/L (98-107) 98mmol/L (98-107) Carbon Dioxide Level 23mmol/L (21-32) 23mmol/L (21-32) Anion Gap 11 (6-14) 12 (6-14) Blood Urea Nitrogen 39mg/dL (7-20) 28mg/dL (7-20) Creatinine 1.0mg/dL (0.6-1.0) 0.8mg/dL (0.6-1.0) Estimated GFR (Cockcroft-Gault) 55.8 72.2 Glucose Level 93mg/dL (70-99) 99mg/dL (70-99) Calcium Level 9.0mg/dL (8.5-10.1) 9.2mg/dL (8.5-10.1) Laboratory Tests Test 10/30/16 03:50 White Blood Count 9.9x10^3/uL (4.0-11.0) Red Blood Count 4.55x10^6/uL (3.50-5.40) Hemoglobin 12.4g/dL (12.0-15.5) Hematocrit 38.2% (36.0-47.0) Mean Corpuscular Volume 84fL (79-100) Mean Corpuscular Hemoglobin 27pg (25-35) Mean Corpuscular Hemoglobin Concent 33g/dL (31-37) Red Cell Distribution Width 14.0% (11.5-14.5) Platelet Count 282x10^3/uL (140-400) Neutrophils (%) (Auto) 66% (31-73) Lymphocytes (%) (Auto) 23% (24-48) Monocytes (%) (Auto) 8% (0-9) Eosinophils (%) (Auto) 2% (0-3) Basophils (%) (Auto) 1% (0-3) Neutrophils # (Auto) 6.6x10^3uL (1.8-7.7) Lymphocytes # (Auto) 2.3x10^3/uL (1.0-4.8) Monocytes # (Auto) 0.8x10^3/uL (0.0-1.1) Eosinophils # (Auto) 0.2x10^3/uL (0.0-0.7) Basophils # (Auto) 0.1x10^3/uL (0.0-0.2) Sodium Level 133mmol/L (136-145) Potassium Level 5.5mmol/L (3.5-5.1) Chloride Level 98mmol/L (98-107) Carbon Dioxide Level 23mmol/L (21-32) Anion Gap 12 (6-14) Blood Urea Nitrogen 28mg/dL (7-20) Creatinine 0.8mg/dL (0.6-1.0) Estimated GFR (Cockcroft-Gault) 72.2 Glucose Level 99mg/dL (70-99) Calcium Level 9.2mg/dL (8.5-10.1) Medications Current Medications Lorazepam (Ativan) 2 mg 1X ONCE IV Last administered on 10/27/16 18:16; Start 10/27/16 at 17:15; Stop 10/27/16 at 17:16; Status DC Diphenhydramine HCl 25 mg 25 mg 1X ONCE IVP Last administered on 10/27/16 17: 36; Start 10/27/16 at 17:15; Stop 10/27/16 at 17:16; Status DC Sodium Chloride (Iv Sodium Chloride 0.9% 1000ml Bag) 1,000 ml @ 1,000 mls/hr 1X ONCE IV Last administered on 10/27/16 17:36; Start 10/27/16 at 17:00; Stop 10/27/16 at 17:59; Status DC Ondansetron HCl (Zofran) 4 mg PRN Q8HRS PRN IV NAUSEA/VOMITING; Start 10/27/16 at 19:30; Stop 10/28/16 at 19:29; Status DC Fentanyl Citrate 50 mcg 50 mcg PRN Q2HR PRN IV PAIN; Start 10/27/16 at 19:30; Stop 10/28/16 at 19:29; Status DC Sodium Chloride (Iv Sodium Chloride 0.9% 1000ml Bag) 1,000 ml @ 150 mls/hr Q6H40M IV ; Start 10/27/16 at 19:30; Stop 10/27/16 at 19:49; Status DC Acetaminophen (Tylenol) 650 mg PRN Q4HRS PRN PO FEVER Last administered on 10/28 18:23; Start 10/27/16 at 19:30; Stop 10/28/16 at 19:29; Status DC Acetaminophen (Tylenol) 325 mg PRN Q6HRS PRN PO MILD PAIN / TEMP Last administered on 10/29/16 22:16; Start 10/27/16 at 20:00 Hydralazine HCl (Apresoline) 10 mg PRN Q4HRS PRN IVP ELEVATED BP, SEE COMMENTS ; Start 10/27/16 at 20:00 Ondansetron HCl (Zofran) 4 mg PRN Q8HRS PRN IV NAUSEA/VOMITING; Start 10/27/16 at 20:00 Albuterol Sulfate 2.5 mg 2.5 mg PRN Q4HRS PRN NEB SHORTNESS OF BREATH; Start at 20:00 Sodium Chloride (Iv Sodium Chloride 0.9% 1000ml Bag) 1,000 ml @ 50 mls/hr 1X ONCE IV Last administered on 10/27/16 20:14; Start 10/27/16 at 20:00; Stop at 15:59; Status DC Lorazepam 1 mg 1 mg PRN QHS PRN PO ANXIETY / AGITATION Last administered on 03:55; Start 10/27/16 at 21:00 Sodium Chloride (Iv Sodium Chloride 0.9% 1000ml Bag) 1,000 ml @ 60 mls/hr [id number] IV Last administered on 10/29/16 03:56; Start 10/28/16 at 12:15; Stop 10/29/16 at 11:25; Status DC Tramadol HCl (Ultram) 50 mg PRN Q6HRS PRN PO MODERATE PAIN Last administered on 10/29/16 22:16; Start 10/28/16 at 23:00 Benzocaine (Ora-Jel) 1 stefany PRN QID PRN TP ORAL PAIN Last administered on 16:40; Start 10/28/16 at 23:00 Furosemide (Lasix) 40 mg DAILY PO Last administered on 10/30/16 08:15; Start 10/29/16 at 12:00 Active Scripts Active Aldactone (Spironolactone) 25 Mg Tablet 25 Mg PO DAILY Lasix (Furosemide) 40 Mg Tablet 40 Mg PO DAILY Reported Spironolactone 50 Mg Tablet 50 Mg PO DAILY Cyclobenzaprine Hcl 10 Mg Tablet 10 Mg PO TID PRN Atorvastatin Calcium 20 Mg Tablet 20 Mg PO DAILY Refresh Optive Eye Drops (Carboxymethylcellulos/Glycerin) 15 Ml Drops 1 Drop EACHEYE QID PRN Tramadol Hcl 50 Mg Tablet 50 Mg PO Q8HRS PRN NITROGLYCERIN SubLingual (Nitroglycerin) 0.4 Mg Tab.subl 0.4 Mg SL PRN Q5MIN PRN Daily Vitamin (Multivitamin) 1 Each Tablet 1 Each PO DAILY B-12 (Cyanocobalamin (Vitamin B-12)) 500 Mcg Tablet 500 Mcg PO DAILY Albuterol Sulfate Hfa Inhaler (Albuterol Sulfate) 8.5 Gm Hfa.aer.ad 2 Puff INH Q4HRS PRN Aspirin Ec (Aspirin) 81 Mg Tablet.dr 81 Mg PO DAILY Vitals/I & O Vital Sign - Last 24 Hours 10/29/16 10/29/16 10/29/16 10/29/16 10:47 14:35 19:00 20:24 Temp 96.8 97.8 98.4 96.8 97.8 98.4 Pulse 95 95 95 Resp B/P 96/50 102/71 92/67 Pulse Ox 99 100 98 O2 Delivery Room Air Room Air Room Air 10/29/16 10/29/16 10/29/16 10/29/16 21:38 22:16 23:00 23:02 Temp 98.0 98.0 Pulse 96 Resp 18 B/P 103/79 Pulse Ox 98 99 98 O2 Delivery Room Air Room Air Room Air 10/30/16 10/30/16 03:00 07:00 Temp 97.6 98.7 97.6 98.7 Pulse 97 95 Resp B/P 110/62 102/72 Pulse Ox 100 O2 Delivery Room Air Intake and Output 10/29/16 10/29/16 10/30/16 15:00 23:00 07:00 Intake Total 300 ml 360 ml 120 ml Balance 300 ml 360 ml 120 ml LESIA PEACE III DO Oct 30, 2016 09:36
[2016-10-30 11:00] VITALS: BP 105/61
[2016-10-30] MEDS ORDERED: SODIUM POLYSTYRENE SULFONATE 15 GM/60 ML ORAL.SUSP. PO ONE (11:30)
--- NOTE | 2016-10-30 11:33 | PDOC ---
Renal-Progress Notes Subjective Notes Notes FEELS VERY TIRED AND WEAK TODAY History of Present Illness Hx of present illness BETTER Vitals Vitals Vital Signs Date Time Temp Pulse Resp B/P Pulse Ox O2 Delivery O2 Flow Rate FiO2 10/30/16 07:00 98.7 95 18 102/72 Room Air 98.7 10/30/16 03:00 100 Weight Weight [ ] I.O. Intake and Output Intake and Output 10/30/16 07:00 Intake Total 780 ml Balance 780 ml Intake Oral 780 ml # Voids 3 Labs Labs Laboratory Tests Test 10/30/16 03:50 White Blood Count 9.9x10^3/uL (4.0-11.0) Red Blood Count 4.55x10^6/uL (3.50-5.40) Hemoglobin 12.4g/dL (12.0-15.5) Hematocrit 38.2% (36.0-47.0) Mean Corpuscular Volume 84fL (79-100) Mean Corpuscular Hemoglobin 27pg (25-35) Mean Corpuscular Hemoglobin Concent 33g/dL (31-37) Red Cell Distribution Width 14.0% (11.5-14.5) Platelet Count 282x10^3/uL (140-400) Neutrophils (%) (Auto) 66% (31-73) Lymphocytes (%) (Auto) 23% (24-48) Monocytes (%) (Auto) 8% (0-9) Eosinophils (%) (Auto) 2% (0-3) Basophils (%) (Auto) 1% (0-3) Neutrophils # (Auto) 6.6x10^3uL (1.8-7.7) Lymphocytes # (Auto) 2.3x10^3/uL (1.0-4.8) Monocytes # (Auto) 0.8x10^3/uL (0.0-1.1) Eosinophils # (Auto) 0.2x10^3/uL (0.0-0.7) Basophils # (Auto) 0.1x10^3/uL (0.0-0.2) Sodium Level 133mmol/L (136-145) Potassium Level 5.5mmol/L (3.5-5.1) Chloride Level 98mmol/L (98-107) Carbon Dioxide Level 23mmol/L (21-32) Anion Gap 12 (6-14) Blood Urea Nitrogen 28mg/dL (7-20) Creatinine 0.8mg/dL (0.6-1.0) Estimated GFR (Cockcroft-Gault) 72.2 Glucose Level 99mg/dL (70-99) Calcium Level 9.2mg/dL (8.5-10.1) Review of Systems Constitutional: yes: alert, oriented, weakness Ears/Nose/Throat: Yes: no symptom reported Eyes: Yes: no symptom reported Genitourinary: Yes: no symptom reported Skin: Yes no symptom reported Physical Exam General Appearance: no apparent distress Skin: warm Respiratory: bilateral CTA Heart: S1S2, RRR Abdomen: soft, bowel sounds present Extremities: pulses present Neurology: alert, oriented Musculoskeletal: Osteoarthritis Assessment Assessment IMP SHERRELL-RESOLVED MILD HYPERKALEMIA-WORSE SEVERE CM WITH EF 15% PLAN INCREASE LASIX TO BID CONT TO HOLD ALDACTONE PO KAYEXALATE SILVA CERON MD Oct 30, 2016 11:33
[2016-10-30 15:00] VITALS: BP 94/70
[2016-10-30 19:00] VITALS: BP 98/62
[2016-10-30 22:53] VITALS: BP 113/71
[2016-10-31 02:56] VITALS: BP 103/68
[2016-10-31 05:36] LABS: BASO # 0.1 x10^3/uL (0.0-0.2); BASO % 1 % (0-3); EOS % 2 % (0-3); HEMATOCRIT 39.8 % (36.0-47.0); HEMOGLOBIN 12.8 g/dL (12.0-15.5); LYMPH # 2.2 x10^3/uL (1.0-4.8); LYMPH % 21 % (24-48); MEAN CORPUSCULAR HEMOGLOBIN 27 pg (25-35); MEAN CORPUSCULAR HGB CONC 32 g/dL (31-37); MEAN CORPUSCULAR VOLUME 85 fL (79-100); MONO % 8 % (0-9); NEUT % 69 % (31-73); PLATELET COUNT 284 x10^3/uL (140-400); RED BLOOD COUNT 4.71 x10^6/uL (3.50-5.40); RED CELL DISTRIBUTION WIDTH 13.9 % (11.5-14.5); WHITE BLOOD COUNT 10.7 x10^3/uL (4.0-11.0)
[2016-10-31 05:46] LABS: CALCIUM 9.3 mg/dL (8.5-10.1); CREATININE 1.1 mg/dL (0.6-1.0); POTASSIUM 3.8 mmol/L (3.5-5.1)
[2016-10-31 07:00] VITALS: BP_SYST 131; BP_SYST 96; BP_DIAS 69; BP_DIAS 72
[2016-10-31] MEDS: FUROSEMIDE 40 MG TABLET PO SCH ×2 (08:40→13:23)
--- NOTE | 2016-10-31 10:26 | HP ---
ADMIT DATE: 10/27/2016 CHIEF COMPLAINT: Shortness of breath and weakness. HISTORY OF PRESENT ILLNESS: A 66-year-old female patient with prior history of cardiomyopathy, presented to the ER with complaints of muscle spasms and body aches all over the body. The patient has not been feeling well for several days. She told me that she was recently started on medications such as the diuretics and the dose has been increased by her primary care doctor, ever since, she is not feeling well and also she is not making good urine. The patient denies any chest pain; however, she complains of some shortness of breath, muscle pains or twitching has more problem for her. She denies any palpitations. PAST MEDICAL HISTORY AND REVIEW OF SYSTEMS: Please see my electronic H and P. ASSESSMENT AND PLAN: 1. Acute kidney injury. 2. Electrolyte imbalances present on admission. 3. Cardiomyopathy. 4. Hypertension. 5. Hyperlipidemia. 6. History of pulmonary embolism. 7. Peripheral neuropathy. 8. Diabetes mellitus. PLAN: 1. Start her on mild IV hydration at least 75 mL per hour. 2. Hold Lasix and spironolactone from home. 3. Consult Nephrology for further recommendations. 4. Blood pressure has been staying low. We will continue to monitor her blood pressure. 5. For muscle spasms will give one-time dose of Ativan p.r.n. 6. P.r.n. hydralazine for systolic blood pressure. 7. The patient has chronic cardiomyopathy it appears to be compensated. 8. She has mild hyperkalemia, monitor potassium. 9. Monitor renal functions. 10. CBC, BMP in a.m. CARLOS BOOKER MD DR: JAZZMINE/quintin JOB#: [id number] / [id number] JALEND
[2016-10-31 11:00] VITALS: BP 111/77
--- NOTE | 2016-10-31 11:08 | PDOC ---
Renal-Progress Notes Subjective Notes Notes FEELS WELL History of Present Illness Hx of present illness BETTER Vitals Vitals Vital Signs Date Time Temp Pulse Resp B/P Pulse Ox O2 Delivery O2 Flow Rate FiO2 10/31/16 07:40 Room Air 10/31/16 07:00 97.6 94 96/69 99 97.6 10/31/16 07:00 20 Weight Weight [ ] I.O. Intake and Output Intake and Output 10/31/16 07:00 Intake Total 865 ml Balance 865 ml Intake Oral 865 ml # Voids 4 Labs Labs Laboratory Tests Test 10/31/16 04:20 White Blood Count 10.7x10^3/uL (4.0-11.0) Red Blood Count 4.71x10^6/uL (3.50-5.40) Hemoglobin 12.8g/dL (12.0-15.5) Hematocrit 39.8% (36.0-47.0) Mean Corpuscular Volume 85fL (79-100) Mean Corpuscular Hemoglobin 27pg (25-35) Mean Corpuscular Hemoglobin Concent 32g/dL (31-37) Red Cell Distribution Width 13.9% (11.5-14.5) Platelet Count 284x10^3/uL (140-400) Neutrophils (%) (Auto) 69% (31-73) Lymphocytes (%) (Auto) 21% (24-48) Monocytes (%) (Auto) 8% (0-9) Eosinophils (%) (Auto) 2% (0-3) Basophils (%) (Auto) 1% (0-3) Neutrophils # (Auto) 7.4x10^3uL (1.8-7.7) Lymphocytes # (Auto) 2.2x10^3/uL (1.0-4.8) Monocytes # (Auto) 0.9x10^3/uL (0.0-1.1) Eosinophils # (Auto) 0.2x10^3/uL (0.0-0.7) Basophils # (Auto) 0.1x10^3/uL (0.0-0.2) Sodium Level 138mmol/L (136-145) Potassium Level 3.8mmol/L (3.5-5.1) Chloride Level 97mmol/L (98-107) Carbon Dioxide Level 26mmol/L (21-32) Anion Gap 15 (6-14) Blood Urea Nitrogen 29mg/dL (7-20) Creatinine 1.1mg/dL (0.6-1.0) Estimated GFR (Cockcroft-Gault) 50.0 Glucose Level 130mg/dL (70-99) Calcium Level 9.3mg/dL (8.5-10.1) Review of Systems Constitutional: yes: alert, oriented, weakness Ears/Nose/Throat: Yes: no symptom reported Eyes: Yes: no symptom reported Genitourinary: Yes: no symptom reported Skin: Yes no symptom reported Physical Exam General Appearance: no apparent distress Skin: warm Respiratory: bilateral CTA Heart: S1S2, RRR Abdomen: soft, bowel sounds present Extremities: pulses present Neurology: alert, oriented Musculoskeletal: Osteoarthritis Assessment Assessment IMP SHERRELL-RESOLVED MILD HYPERKALEMIA-RESOLVED SEVERE CM WITH EF 15% PLAN LASIX BID CONT TO HOLD ALDACTONE OK TO D/C D/W ATTENDING SILVA CERON MD Oct 31, 2016 11:08
[2016-10-31] MEDS ORDERED: FURO40TA4 PO (11:26)
== END 2016-10-31 14:39 | disposition home or self-care (01) | DRG 683 ==
LOC: ER 16:06 → 5 SOUTH 20:30
PROVIDERS: ADMIT Internal Medicine; ATTEND Internal Medicine
DX: N17.9 Acute kidney failure, unspecified (principal); I42.0 Dilated cardiomyopathy; R65.10 Systemic inflammatory response syndrome (SIRS) of non-infectious origin without acute organ dysfunction; D64.9 Anemia, unspecified; E78.5 Hyperlipidemia, unspecified; E11.42 Type 2 diabetes mellitus with diabetic polyneuropathy; E87.5 Hyperkalemia; M19.90 Unspecified osteoarthritis, unspecified site; E78.00 Pure hypercholesterolemia, unspecified; E86.0 Dehydration; I07.1 Rheumatic tricuspid insufficiency; I34.0 Nonrheumatic mitral (valve) insufficiency; I50.9 Heart failure, unspecified; I11.9 Hypertensive heart disease without heart failure; Z82.49 Family history of ischemic heart disease and other diseases of the circulatory system; Z95.810 Presence of automatic (implantable) cardiac defibrillator; Z79.899 Other long term (current) drug therapy; Z79.82 Long term (current) use of aspirin; Z88.6 Allergy status to analgesic agent; Z88.1 Allergy status to other antibiotic agents; Z88.5 Allergy status to narcotic agent; Z88.0 Allergy status to penicillin; Z88.7 Allergy status to serum and vaccine
CPT/HCPCS: 36415; 80048; 80053; 81001; 82550; 83735; 83874; 85027; 87324; 93005; 94640; 96361; 96374; 96375; G0481; J1200; J2060; J7030; 97116; 97530; 99285-25

== ENCOUNTER 2017-03-26 19:35 | Emergency (ER) | payer MEDICARE ==
[~2017-03-26 19:35] MED LIST changes: +ASPI-612 PO; -ASPI81TA9 PO; +FURO40TA4 PO; +NITR0.4T22 SL; -NITR0.4T6 SL; +SPIR50TA2 PO
[2017-03-26 19:42] VITALS: BP 99/57
--- NOTE | 2017-03-26 19:55 | PHYS DOC ---
Past Medical History Past Medical History: DVT, High Cholesterol, Hypertension, Pneumonia, Other Additional Past Medical Histor: Tricuspid regurgitation, Mitral regurg, Implanted pace/defib, cardiomyopath Past Surgical History: Pacemaker, Other Additional Past Surgical Histo: pacemaker/defib(x3), right shoulder Alcohol Use: None Drug Use: None Adult General Chief Complaint Chief Complaint: MUSCLE SPASM/CRAMP [facility] HPI Patient is a 66 year old female presents emergency department stating that she has having generalized body muscle aches and spasms. Patient states the last time that this is happened she had a low potassium. She states that was back in October due to Lasix. Patient states she continues to have Lasix as a primary medication however she does not have routine blood work done. Patient states that this is been going on since yesterday. She states that she has tried Tylenol with no relief. Review of Systems Review of Systems Constitutional: Denies fever or chills [] Eyes: Denies change in visual acuity, redness, or eye pain [] HENT: Denies nasal congestion or sore throat [] Respiratory: Denies cough or shortness of breath [] Cardiovascular: No additional information not addressed in HPI [] GI: Denies abdominal pain, nausea, vomiting, bloody stools or diarrhea [] : Denies dysuria or hematuria [] Musculoskeletal: Denies back pain or joint pain. Complaint of generalized body spasms with muscle aches and discomfort. Integument: Denies rash or skin lesions [] Neurologic: Denies headache, focal weakness or sensory changes [] Endocrine: Denies polyuria or polydipsia [] Current Medications Current Medications Current Medications Medications (Trade) Dose Ordered Sig/[facility] Start Time Stop Time Status Last Admin Dose Admin Acetaminophen (Tylenol) 650 mg 1X ONCE 03/26/17 20:45 03/26/17 20:46 DC 03/26/17 21:00 650 MG Cyclobenzaprine HCl (Flexeril) 5 mg 1X ONCE 03/26/17 21:30 03/26/17 21:31 03/26/17 21:00 5 MG Allergies Allergies Allergies Coded Allergies Type Severity Reaction Last Updated Verified NOAH Inhibitors Allergy Intermediate hives 08/18/14 Yes Neuromuscular Blockers, Steroidal Allergy Intermediate rash/swelling 08/18/14 Yes Penicillins Allergy Intermediate hives 08/18/14 Yes ceftriaxone Allergy Intermediate rash 08/18/14 Yes chlorpheniramine Allergy Intermediate rash/blisters 08/18/14 Yes codeine Allergy Intermediate hives,rash,blisters 08/19/14 Yes hydrocodone Allergy Intermediate itching 08/18/14 Yes oxycodone Allergy Intermediate itching 08/18/14 Yes Physical Exam Physical Exam Constitutional: Well developed, well nourished, no acute distress, non-toxic appearance. [] HENT: Normocephalic, atraumatic, bilateral external ears normal, oropharynx moist, no oral exudates, nose normal. [] Eyes: PERRLA, EOMI, conjunctiva normal, no discharge. [] Neck: Normal range of motion, no tenderness, supple, no stridor. [] Cardiovascular:Heart rate regular rhythm, no murmur [] Lungs & Thorax: Bilateral breath sounds clear to auscultation [] Skin: Warm, dry, no erythema, no rash. [] Back: No tenderness Extremities: No tenderness, no cyanosis, no clubbing, ROM intact, no edema. [] Neurologic: Alert and oriented X 3, normal motor function, normal sensory function, no focal deficits noted. [] Psychologic: Affect normal, judgement normal, mood normal. [] Current Patient Data Vital Signs Vital Signs Date Time Temp Pulse Resp B/P (MAP) Pulse Ox O2 Delivery O2 Flow Rate FiO2 03/26/17 19:42 98.4 100 18 100 Room Air 98.4 Lab Values Laboratory Tests Test 03/26/17 20:40 03/26/17 20:44 Sodium Level 136 mmol/L (136-145) Potassium Level 4.6 mmol/L (3.5-5.1) Chloride Level 97 mmol/L (98-107) L Carbon Dioxide Level 31 mmol/L (21-32) Anion Gap 8 (6-14) 18 mmol/L (6-14) H Blood Urea Nitrogen 30 mg/dL (7-20) H Creatinine 1.2 mg/dL (0.6-1.0) H Estimated GFR (Cockcroft-Gault) 45.2 BUN/Creatinine Ratio 25 (6-20) H Glucose Level 97 mg/dL (70-99) 96 mg/dL (70-99) Calcium Level 9.2 mg/dL (8.5-10.1) Total Bilirubin 0.9 mg/dL (0.2-1.0) Aspartate Amino Transferase (AST) 23 U/L (15-37) Alanine Aminotransferase (ALT) 29 U/L (14-59) Alkaline Phosphatase 89 U/L (46-116) Total Protein 8.8 g/dL (6.4-8.2) H Albumin 4.3 g/dL (3.4-5.0) Albumin/Globulin Ratio 1.0 (1.0-1.7) POC Hemoglobin 15.0 g/dL (12-15) POC Hematocrit 44 % (36-40) H POC Sodium 135 mmol/L (135-145) POC Potassium 4.5 mmol/L (3.5-5.0) POC Chloride 92 mmol/L (98-110) L POC Total CO2 31 mmol/L (23-32) POC Blood Urea Nitrogen 30 mg/dL (8-26) H POC Creatinine 1.2 mg/dL (0.5-1.4) POC Ionized Calcium (Herminio) 1.05 mmol/L (1.13-1.32) L Laboratory Tests 03/26/17 20:40 03/26/17 20:44 EKG EKG [] Radiology/Procedures Radiology/Procedures [] Course & Med Decision Making Course & Med Decision Making Pertinent Labs and Imaging studies reviewed. (See chart for details) Patient's potassium was 4.5. Creatinine was 1.2 with BUN and 30. These are not abnormal from her baseline. Patient was provided with Tylenol here in the emergency department. She was provided with Flexeril as well. Spoke with Dr. Leonard in regards to further evaluation the patient. His recommendations was to have the patient follow-up primary care physician on Tuesday patient can always come back to the emergency department with the spasms get worse. Flexeril as needed for muscle spasms. Tylenol or ibuprofen for pain and discomfort. Patient will be discharged home in stable condition signs symptoms to return back to emergency prior has been provided. Patient agrees with discharge her sister regimens follow-up recommendations. All questions have been answered to the patient at patient's bedside. [] Dragon Disclaimer Dragon Disclaimer This electronic medical record was generated, in whole or in part, using a voice recognition dictation system. Departure Departure Impression: Primary Impression: Muscle spasm Disposition: HOME, SELF-CARE Condition: STABLE Referrals: NO PCP (PCP) Patient Instructions: Muscle Cramps, [id number] Additional Instructions: Your labs such as potassium was within normal limits. Creatinine and BUN was normal as well. Activity as tolerated. Tylenol and Ibuprofen for pain and discomfort. Flexeril for muscle spasms and discomfort. Follow-up to primary care physician on Tuesday. Return back to emergency prior signs symptoms of become worse. Scripts Cyclobenzaprine Hcl (CYCLOBENZAPRINE HCL) 5 Mg Tablet 1 TAB PO TID Y for MUSCLE SPASMS, #30 TAB Prov: FÁTIMA VIRK APRN 03/26/17 FÁTIMA VIRK APRN Mar 26, 2017 19:55
[2017-03-26] MEDS ORDERED: ACETAMINOPHEN 325 MG TABLET. PO ONE (20:45)
[2017-03-26 20:48] LABS: POTASSIUM ISTAT 4.5 mmol/L (3.5-5.0)
[2017-03-26 21:01] LABS: CALCIUM 9.2 mg/dL (8.5-10.1); CREATININE 1.2 mg/dL (0.6-1.0); GFR 45.2; POTASSIUM 4.6 mmol/L (3.5-5.1)
[2017-03-26 21:12] LABS: ALBUMIN 4.3 g/dL (3.4-5.0); TOTAL BILIRUBIN 0.9 mg/dL (0.2-1.0); TOTAL PROTEIN 8.8 g/dL (6.4-8.2)
[2017-03-26] MEDS ORDERED: CYCL5TAB PO (21:21)
[2017-03-26] MEDS ORDERED: CYCLOBENZAPRINE 10 MG TABLET. PO ONE (21:30)
== END 2017-03-26 21:54 | disposition home or self-care (01) ==
LOC: ER 19:35
DX: M62.838 Other muscle spasm (principal); M79.1 Myalgia; E78.00 Pure hypercholesterolemia, unspecified; I10 Essential (primary) hypertension; Z86.718 Personal history of other venous thrombosis and embolism; Z95.0 Presence of cardiac pacemaker; Z88.6 Allergy status to analgesic agent; Z88.1 Allergy status to other antibiotic agents; Z88.5 Allergy status to narcotic agent; Z88.0 Allergy status to penicillin; Z88.8 Allergy status to other drugs, medicaments and biological substances
CPT/HCPCS: 36415; 80047; 80053; 99283

== ENCOUNTER → 2017-05-13 | Outpatient (CLI) | payer MEDICARE ==
[~2017-05-13] MED LIST changes: +CYCL5TAB PO; -GUAI600T28 PO; +GUAI600T79 PO
[2017-05-13 12:48] LABS: CALCIUM 9.5 mg/dL (8.5-10.1); CREATININE 1.1 mg/dL (0.6-1.0); POTASSIUM 4.1 mmol/L (3.5-5.1)
== END | disposition home or self-care (01) ==
LOC: LAB 12:04
DX: N17.9 Acute kidney failure, unspecified (principal)
CPT/HCPCS: 36415; 80048